=== PATIENT | male | born 1945 | race Caucasian/White ===

== ENCOUNTER 2016-07-24 16:33 | Emergency (ER) | payer OTHER ==
[~2016-07-24] VITALS: Ht 175.3 cm; Wt 59.9 kg
[~2016-07-24 16:33] MED LIST: ALBUTEROL2.5 MG/3 M INH/SOL; ANTIVERT 25MG #1 PAC PO; LIPITOR20 MG PO; LISINOPRIL-HCT1 EACH PO; MECLIZINE25 M1 PO; PREDNISONE5 M1 PO; PROAIR HFA8.5 GM INH; SINEMET 25-1001 TAB PO; SPIRIVA 18 MCG18 MCG INH; STIOLTO RESPIMA1 SPR INH; TYLENOL EXTRA500 M2 PO; WELLBUTRIN XL300 MG PO
[2016-07-24 17:08] LABS: ABSOLUTE BASOPHIL COUNT 0 /CUMM (0.0-0.2); ABSOLUTE EOSINOPHIL COUNT 0.1 /CUMM (0.0-0.7); ABSOLUTE GRANULOCYTE CT 3.5 /CUMM (1.4-6.5); ABSOLUTE LYMPH COUNT 1.9 /CUMM (1.2-3.4); BASOPHIL % 0.7 % (0.0-2.0); EOSINOPHIL % 1.2 % (0-5); GRANULOCYTE % 53.4 % (42.2-75.2); HEMATOCRIT 38.5 % (42-52); MEAN CORPUSCULAR HGB 32.3 PG (27.0-31.0); MEAN CORPUSCULAR HGB CONC 33.5 G/DL (33.0-37.0); MEAN CORPUSCULAR VOLUME 96.2 FL (80.0-94.0); MEAN PLATELET VOLUME 7.2 FL (7.4-10.4); PLATELET COUNT 177 /CUMM (130-400); RBC DISTRIBUTION WIDTH 13.6 % (11.5-14.5); WHITE BLOOD CELL COUNT 6.5 /CUMM (4.8-10.8)
--- NOTE | 2016-07-24 19:48 | ED CARDIAC/CP/PALPITATIONS ---
History of Present Illness General Chief Complaint: Chest Pain Stated Complaint: CHEST PAIN Source: patient, old records Exam Limitations: no limitations Vital Signs & Intake/Output Vital Signs & Intake/Output Vital Signs Date Time Temp Pulse Resp B/P Pulse O2 O2 Flow FiO2 Ox Delivery Rate 07/24 1943 98 07/24 1705 98.2 94 16 102/63 96 Room Air Allergies Coded Allergies: NSAIDS (Non-Steroidal Anti-Inflamma (ULCER 07/24/16) aspirin (ULCER 07/24/16) hydrocodone (NAUSEA 07/24/16) oxycodone (NAUSEA 07/24/16) Reconcile Medications Acetaminophen (Tylenol Extra Strength) 500 MG TABLET 1 TAB PO Q4H PRN PAIN ( Reported) Albuterol Sulfate (Proair Hfa) 0.09 MG/Actuation KLEBER 1 PUFF PO DAILY PRN BREATHING PROBLEMS (Reported) Albuterol Sulfate (Proventil) 2.5 MG/3 ML NEB 3 ML INH Q4P PRN SHORTNESS OF BREATH (Reported) Carbidopa/Levodopa (Carbidopa-Levodopa 25-100 Tab) 25 MG-100 MG TABLET 1 TAB PO BID PARKINSONS (Reported) Doxycycline Hyclate (Vibramycin) 100 MG CAPSULE 1 CAP PO BID bronchitis LISINOPRIL/HYDROCHLOROTHIAZIDE (Lisinopril-Hctz 20-12.5 MG Tab) 1 TAB TAB 1 TAB PO BID HEART/BP (Reported) Prednisone 5 MG TABLET 1 TAB PO PRN BREATHING (Reported) Prednisone 20 MG TABLET 1 TAB PO BID copd TIOTROPIUM BR/OLODATEROL HCL (Stiolto Respimat Inhal [place]) 1 SPR SPR 1 PUFF INH QAM RESPIRATORY (Reported) Core Measure Meds Pre-Hospital allergic to aspirin Triage Note: PT STATES HE HAD CHEST PAIN FOR ABOUT 1/2 HOUR TODAY. PT STATES HE BECAME DIZZY. NO REFERED PAIN. PT STATES HE DID FEEL SOB WHEN THE EPISODE HAPPEND. Triage Nurses Notes Reviewed? yes Onset: Just prior to arrival Duration: minute(s):, constant, continues in ED Timing: recent history Quality/Severity: moderate, stabbing Location: substernal Radiation: no radiation Activities at Onset: activity Prior Chest Pain/Card Workup: non-cardiac, echocardiography, stress test, thallium scan Modifying Factors: Improves With: coughing, exercise, movement. Nitro Today/Relief: no nitro taken today Aspirin Today: no aspirin today (allergic) Associated Symptoms: diaphoresis, dizziness, shortness of breath, weakness HPI: 2 weeks prior to admission patient complains of progressive shortness of breath especially when awakening associated with chest pain diaphoresis dizziness improved with albuterol MDI. 30 minutes Prior to admission he complained of recurrent episode of shortness of breath and chest pain improved with MDI. He denies fever chills nausea vomiting diarrhea abdominal pain headache dysuria rash bleeding. Past History Travel History Traveled to [place] past 21 day No Medical History Any Pertinent Medical History? 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 No Review of Systems Review of Systems Constitutional: Reports: no symptoms. EENTM: Reports: no symptoms. Respiratory: Reports: see HPI, cough, short of breath. Cardiovascular: Reports: see HPI, chest pain. GI: Reports: no symptoms. Genitourinary: Reports: no symptoms. Musculoskeletal: Reports: no symptoms. Skin: Reports: no symptoms. Neurological/Psychological: Reports: no symptoms. Hematologic/Endocrine: Reports: no symptoms. Immunologic/Allergic: Reports: no symptoms. All Other Systems: Reviewed and Negative Physical Exam Physical Exam General Appearance: well developed/nourished, alert, awake, anxious, mild distress, thin Head: atraumatic, normal appearance Eyes: Bilateral: normal appearance, PERRL, EOMI. Ears, Nose, Throat: normal pharynx, normal ENT inspection, hearing grossly normal Neck: normal inspection, supple, full range of motion, no midline tenderness Respiratory: chest non-tender, decreased breath sounds Cardiovascular: regular rate/rhythm, normal peripheral pulses, norml femoral pulses equa Peripheral Pulses: 4+ carotid (R), 4+ carotid (L), 2+ radial (R), 2+ radial (L) Gastrointestinal: normal bowel sounds, soft, non-tender, no organomegaly Back: normal inspection, normal range of motion, no vertebral tenderness Extremities: normal inspection, normal capillary refill, normal range of motion, no edema, no ligament instability Neurologic/Psych: no motor/sensory deficits, awake, alert, oriented x 3, normal gait, normal mood/affect, 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 Skin: intact, normal color, warm/dry Lymphatic: no anterior cervical morris Core Measures ACS in differential dx? Yes Severe Sepsis Present: No Septic Shock Present: No Progress Differential Diagnosis: AMI, CHF/pulm edema, pneumonia, pneumothorax Plan of Care: Orders Procedure Date/time Status TROPONIN LEVEL 07/24 165 Complete MAGNESIUM 07/24 165 Complete COMPREHENSIVE METABOLIC PANEL 07/24 165 Complete CHOLESTEROL 07/24 165 Complete CBC WITHOUT DIFFERENTIAL 07/24 1656 Complete EKG 07/24 1635 Active Current Medications Sig/Good Start time Last Medication Dose Stop Time Status Admin Doxycycline Hyclate 100 MG ONCE ONE 07/24 2114 AC (Vibramycin) 07/24 2115 Laboratory Tests 07/24/16 1702: Anion Gap 16, Estimated GFR 37 L, BUN/Creatinine Ratio 17.2, Glucose 75, Calcium 9.1, Magnesium 1.7, Total Bilirubin 0.3, AST 18, ALT 15 L, Alkaline Phosphatase 77, Troponin I < 0.01, Total Protein 6.3, Albumin 4.0, Globulin 2.3, Albumin/Globulin Ratio 1.7, Cholesterol 163, CBC w Diff NO MAN DIFF REQ, RBC 4.00 L, MCV 96.2 H, MCH 32.3 H, RDW 13.6, MPV 7.2 L, Gran % 53.4, Lymphocytes % 29.9, Monocytes % 14.8 H, Eosinophils % 1.2, Basophils % 0.7, Absolute Granulocytes 3.5, Absolute Lymphocytes 1.9, Absolute Monocytes 1.0 H, Absolute Eosinophils 0.1, Absolute Basophils 0, PUBS MCHC 33.5 Diagnostic Imaging: Viewed by Me: Radiology Read. Discussed w/RAD: Radiology Read. CXR Impression: no acute abnormality Initial ED EKG: normal axis, normal intervals, normal p-waves, normal QRS complex, rate (sinus tachycardia) Prior EKG: unchanged Rhythm Strip: normal sinus rhythm Departure Departure Time of Disposition: 2099 Disposition: HOME OR SELF CARE Condition: Stable Clinical Impression Primary Impression: COPD with exacerbation Secondary Impressions: Chest pain syndrome, Prerenal azotemia Referrals: FANNY DICKERSON,Koffi SOUZA MD,ADDY Jamison (PCP/Family) Additional Instructions: Use your albuterol nebulizer as needed every 4 hours Departure Forms: Customer Survey General Discharge Information Prescriptions: Current Visit Scripts Prednisone 1 TAB PO BID #10 TAB Doxycycline Hyclate (Vibramycin) 1 CAP PO BID #20 CAP Critical Care Note Critical Care Note Critical Care Time: non-applicable
[2016-07-24] MEDS ORDERED: CARBIDOPA-LEVO1 EAC7 PO (20:47)
--- NOTE | 2016-07-24 20:53 | RADIOLOGY REPORT ---
EXAMINATION: XR CHEST CLINICAL INFORMATION: 71-year-old male patient with chest pain. Known emphysema. COMPARISON: Portable chest x-ray on 08/10/2015. Previous chest x-ray done 11/04/2013. TECHNIQUE: PA and lateral views of the chest were obtained. FINDINGS: Reexamination again shows the signs of emphysema. There is hyperaeration of both lungs. The heart is small in size secondary to the hyperaeration. No pneumonia or atelectasis is seen. An anterior cervical spinal fusion is in place. IMPRESSION: No acute disease. Emphysema.
[2016-07-24] MEDS ORDERED: PREDNISONE20 M1 PO (21:01)
[2016-07-24] MEDS ORDERED: VIBRAMYCIN100 MG PO (21:03)
[2016-07-24 21:15] VITALS: BP 110/68
== END 2016-07-24 21:15 ==
LOC: ERH 16:33
PROVIDERS: Emergency Medicine
DX: R07.9 Chest pain, unspecified (principal); J44.1 Chronic obstructive pulmonary disease with (acute) exacerbation; R79.89 Other specified abnormal findings of blood chemistry; F17.210 Nicotine dependence, cigarettes, uncomplicated
CPT/HCPCS: 1263; 93005; 93010; 96374; J2930

== ENCOUNTER 2016-10-03 12:00 | Emergency (ER) | payer OTHER ==
[~2016-10-03] VITALS: Ht 175.3 cm; Wt 63.5 kg
[~2016-10-03 12:00] MED LIST changes: +CARBIDOPA-LEVO1 EAC7 PO; +PREDNISONE20 M1 PO; +VIBRAMYCIN100 MG PO
--- NOTE | 2016-10-03 12:16 | ED DYSPNEA/ASTHMA COMPLAINT ---
History of Present Illness General Chief Complaint: Dyspnea (COPD, CHF, Other) Stated Complaint: SOB Source: patient, old records Exam Limitations: no limitations Vital Signs & Intake/Output Vital Signs & Intake/Output Vital Signs Date Time Temp Pulse Resp B/P Pulse O2 O2 Flow FiO2 Ox Delivery Rate 10/03 1407 98.5 92 18 132/87 95 Room Air Room Air 10/03 1259 99 10/03 1222 96 Room Air Room Air 10/03 1211 98.6 98 22 129/88 96 Room Air Allergies Coded Allergies: NSAIDS (Non-Steroidal Anti-Inflamma (ULCER 07/24/16) aspirin (ULCER 07/24/16) hydrocodone (NAUSEA 07/24/16) oxycodone (NAUSEA 07/24/16) Reconcile Medications Acetaminophen (Tylenol Extra Strength) 500 MG TABLET 1 TAB PO Q4H PRN PAIN ( Reported) Albuterol Sulfate (Proair Hfa) 0.09 MG/Actuation KLEBER 1 PUFF PO DAILY PRN BREATHING PROBLEMS (Reported) Albuterol Sulfate (Proventil) 2.5 MG/3 ML NEB 3 ML INH Q4P PRN SHORTNESS OF BREATH (Reported) Azithromycin 250 MG TABLET 1 DP PO AD BRONCHITIS 2 the first day followed by 1 for days 2-5 Carbidopa/Levodopa (Carbidopa-Levodopa 25-100 Tab) 25 MG-100 MG TABLET 1 TAB PO BID PARKINSONS (Reported) Doxycycline Hyclate (Vibramycin) 100 MG CAPSULE 1 CAP PO BID bronchitis LISINOPRIL/HYDROCHLOROTHIAZIDE (Lisinopril-Hctz 20-12.5 MG Tab) 1 TAB TAB 1 TAB PO BID HEART/BP (Reported) Methylprednisolone. (Medrol) 4 MG TAB.DS.PK 1 DP PO AD BRONCHITIS 6 on day 1 then reduce by one tablet daily until gone Prednisone 5 MG TABLET 1 TAB PO PRN BREATHING (Reported) Prednisone 20 MG TABLET 1 TAB PO BID copd TIOTROPIUM BR/OLODATEROL HCL (Stiolto Respimat Inhal [place]) 1 SPR SPR 1 PUFF INH QAM RESPIRATORY (Reported) Triage Note: PT C/O PRODUCTIVE COUGH WITH YELLOW PHLEGM X 3 DAYS. PT STATES HE BECAME VERY SOB WHILE WALKING FROM HIS CAR TO THE ED. Triage Nurses Notes Reviewed? yes Onset: Gradual Duration: day(s): (3), constant Timing: recent history Severity: mild, moderate Activities at Onset: activity Prior Episodes/Possible Cause: occasional episodes Modifying Factors: Worsens With: movement. Associated Symptoms: cough HPI: 71-year-old male with history of chronic bronchitis emphysema hypertension who quit smoking 3 months ago presents emergency room sent in by his primary care physician for evaluation. Patient states she's had a productive cough of yellow sputum for the past 3 days. He states that his cough is normally productive of white sputum however this is no associated with intermittent shortness of breath that is worse with exertion and better at rest and resolved with using his albuterol inhaler and nebulizer. The patient denies fevers chills chest pain leg swelling nausea vomiting or diarrhea. No recent antibiotic use. No sick contacts of similar symptoms. Symptoms are worse with exertion better at rest there are no other associated symptoms. The patient is not oxygen dependent at home. No pain with inspiration no hemoptysis (CHELSEA BETANCUR) Past History Travel History Traveled to [place] past 21 day No Medical History Any Pertinent Medical History? 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 No (CHELSEA BETANCUR) Review of Systems Review of Systems Constitutional: Reports: see HPI. All Other Systems: Reviewed and Negative Comments Review of systems: See HPI, All other systems negative. Constitutional, no chills no fever, no malaise HEENT: No visual changes no sore throat no congestion, no ear pain Cardiovascular: No chest pain , no palpitation , no orthopnea no ankle swelling Skin, no jaundice no rashes, no change in skin Respiratory: dyspnea cough SPutum no hemoptysis GI: No nausea no vomiting, no diarrhea, : No dysuria No hematuria, Muscle skeletal: No joint pain, no joint swelling, no back pain, no neck pain, Neurologic: No numbness no headache Psych: No stress. Heme/endocrine: No bruising no bleeding Immunology: No lymphadenopathy (CHELSEA BETANCUR) Physical Exam Physical Exam General Appearance: well developed/nourished, alert, awake Respiratory: normal breath sounds, chest non-tender, no respiratory distress Comments: Well-developed well-nourished person in no acute distress HEENT: Normal EENT exam; PERRL, EOMI, HEAD is atraumatic. moist mucous membranes. Neck: Supple, no lymphadenopathy, normal range of motion Back: Nontender, no CVA tenderness. Full range of motion Cardiovascular: Regular rate and rhythms no murmurs rubs Respiratory: No respiratory distress. Patient speaking in full complete sentences. Breath sounds clear to auscultation bilaterally: NO W/R/R Abdomen: Soft, nontender nondistended, no appreciable organomegaly. Extremity: No edema, full range of motion of extremities, normal and equal pulses bilaterally Neuro: Alert oriented x3, motor sensory normal, There were no obvious focal neurologic abnormalities. Skin: No appreciable rash on exposed skin, skin is warm and dry. Psych: Mood and affect is normal, memory and judgment is normal. Core Measures ACS in differential dx? Yes Severe Sepsis Present: No Septic Shock Present: No (CHELSEA BETANCUR) Progress Differential Diagnosis: asthma, AMI, bronchitis, CHF, COPD, musculoskeletal pain , pericarditis, pulmonary embolism, pneumonia, pneumothorax, unstable angina Plan of Care: Orders Procedure Date/time Status BLOOD CULTURE 10/03 1225 Active TROPONIN LEVEL 10/03 1225 Complete COMPREHENSIVE METABOLIC PANEL 10/03 1225 Complete CBC WITHOUT DIFFERENTIAL 10/03 1225 Complete EKG 10/03 1202 Active Laboratory Tests 10/03/16 1310: Anion Gap 8, Estimated GFR 35 L, BUN/Creatinine Ratio 15.8, Glucose 85, Calcium 9.1, Total Bilirubin 0.5, AST 19, ALT 31, Alkaline Phosphatase 91, Troponin I < 0.01, Total Protein 6.0 L, Albumin 3.7, Globulin 2.3, Albumin/Globulin Ratio 1.6 10/03/16 1300: CBC w Diff NO MAN DIFF REQ, RBC 3.89 L, MCV 95.5 H, MCH 32.3 H, RDW 13.6, MPV 8.0, Gran % 65.5, Lymphocytes % 20.7, Monocytes % 10.8 H, Eosinophils % 2.2, Basophils % 0.8, Absolute Granulocytes 6.7 H, Absolute Lymphocytes 2.1, Absolute Monocytes 1.1 H, Absolute Eosinophils 0.2, Absolute Basophils 0.1, PUBS MCHC 33.8 Microbiology 10/03 1310 BLOOD: Blood Culture - RECD 10/03 1300 BLOOD: Blood Culture - RECD Patient speaking in full complete sentences in no respiratory distress x-ray DuoNeb prednisone 60 mg by mouth ordered 10/03/2016 1:35:03 PM repeat evaluation patient is resting comfortably. Discussed with at length all of his lab results the x-ray findings case was discussed with Dr. ODOM. Patient was ambulatory around the emergency room with a room air saturation of 94% Old records reviewed patient's creatinine is at baseline rest of labs are unremarkable. pt seen and evaluted by dr odom agrees with plan. I discussed with the patient at length all of their results. I had an extensive conversation regarding need for close follow up with their primary care physician this week as well as return precautions. I answered all of their questions, they feel comfortable with the plan and follow-up care. I discussed the medications that they will receive with the patient. I gave them signs and symptoms that could indicate an adverse reaction. I have advised them to limit their activities until they can see how they respond to the medication. (SAI KWOK,CHELSEA) Diagnostic Imaging: Viewed by Me: Radiology Read. Discussed w/RAD: Radiology Read. Radiology Impression: PATIENT: MAYRA JUAREZ PRESENT AGE: 71 PATIENT ACCOUNT NO: [id number] : 44 LOCATION: [facility] ORDERING PHYSICIAN: CHELSEA KWOK SERVICE DATE: 10/03/16 EXAM TYPE: RAD - XRY- CHEST XRAY, PA AND LATERAL EXAMINATION: XR CHEST CLINICAL INFORMATION: 71-year- old male with shortness of breath and cough. COMPARISON: July 24, 2016 TECHNIQUE: 2 views of the chest were obtained. FINDINGS: The cardiomediastinal silhouette is within normal limits. The lungs are hyperinflated and hyperlucent consistent with underlying COPD/emphysema. There is no focal consolidation, pleural effusion or pneumothorax. Lower cervical fusion hardware again noted. Partially imaged abdominal aortic stent graft present. Mild degenerative changes are seen throughout the thoracic spine. IMPRESSION: No radiographic evidence of acute pulmonary disease. Emphysema. DICTATED BY: KATERINE STROUD DO DATE/TIME DICTATED:10/03/161309 STONE HAND:CORKY DATE/TIME TRANSCRIBED:1309 CONFIDENTIAL, DO NOT COPY WITHOUT APPROPRIATE AUTHORIZATION. < Electronically signed in Other Vendor System> SIGNED BY: LIBAN STROUD DOOsiris Chand 10/03/16 1314 Initial ED EKG: normal intervals, normal p-waves, normal QRS complex, normal sinus rhythm (80), NONSPECIFIC ST SEG CHANGES Prior EKG: unchanged (07/2016) (CHELSEA BETANCUR) Departure Departure Time of Disposition: 1356 Disposition: HOME OR SELF CARE Condition: Stable Clinical Impression Primary Impression: Bronchitis Referrals: LIBBY DICKERSON,ADDY Jamison (PCP/Family) Additional Instructions: ZPAK DIRECTED, MEDROL DOSE LAKESHIA DISCUSSED. THESE WERE SENT TO YOUR PHARMACY. FOLLOW UP WITH DR MEDINA ON THURSDAY, RETURN AT ANYTIME SOONER WITH ANY CONCERNS Departure Forms: Customer Survey General Discharge Information Prescriptions: Current Visit Scripts Azithromycin 1 DP PO AD #6 TAB 2 the first day followed by 1 for days 2-5 Methylprednisolone. (Medrol) 1 DP PO AD #1 DP 6 on day 1 then reduce by one tablet daily until gone (CHELSEA BETANCUR) PA/BOARD CERTIFIED MUSIC THERAPIST Co-Sign Statement Statement: ED Attending supervision documentation- [X] I saw and evaluated the patient. I have also reviewed all the pertinent lab results and diagnostic results. I agree with the findings and the plan of care as documented in the PA's/BOARD CERTIFIED MUSIC THERAPIST's documentation. [] I have reviewed the ED Record and agree with the PA's/BOARD CERTIFIED MUSIC THERAPIST's documentation. [] Additions or exceptions (if any) to the PAs/BOARD CERTIFIED MUSIC THERAPIST's note and plan are summarized below: [] (HERLINDA ODOM DO) Critical Care Note Critical Care Note Critical Care Time: non-applicable (CHELSEA BETANCUR)
[2016-10-03 13:14] LABS: ABSOLUTE BASOPHIL COUNT 0.1 /CUMM (0.0-0.2); ABSOLUTE EOSINOPHIL COUNT 0.2 /CUMM (0.0-0.7); ABSOLUTE GRANULOCYTE CT 6.7 /CUMM (1.4-6.5); ABSOLUTE LYMPH COUNT 2.1 /CUMM (1.2-3.4); ABSOLUTE MONOCYTE COUNT 1.1 /CUMM (0.10-0.60); BASOPHIL % 0.8 % (0.0-2.0); EOSINOPHIL % 2.2 % (0-5); GRANULOCYTE % 65.5 % (42.2-75.2); HEMATOCRIT 37.1 % (42-52); MEAN CORPUSCULAR HGB 32.3 PG (27.0-31.0); MEAN CORPUSCULAR HGB CONC 33.8 G/DL (33.0-37.0); MEAN CORPUSCULAR VOLUME 95.5 FL (80.0-94.0); PLATELET COUNT 205 /CUMM (130-400); RBC DISTRIBUTION WIDTH 13.6 % (11.5-14.5); RED BLOOD CELL CT 3.89 /CUMM (4.70-6.10); WHITE BLOOD CELL COUNT 10.3 /CUMM (4.8-10.8)
--- NOTE | 2016-10-03 13:19 | RADIOLOGY REPORT ---
EXAMINATION: XR CHEST CLINICAL INFORMATION: 71-year-old male with shortness of breath and cough. COMPARISON: July 24, 2016 TECHNIQUE: 2 views of the chest were obtained. FINDINGS: The cardiomediastinal silhouette is within normal limits. The lungs are hyperinflated and hyperlucent consistent with underlying COPD/emphysema. There is no focal consolidation, pleural effusion or pneumothorax. Lower cervical fusion hardware again noted. Partially imaged abdominal aortic stent graft present. Mild degenerative changes are seen throughout the thoracic spine. IMPRESSION: No radiographic evidence of acute pulmonary disease. Emphysema.
[2016-10-03] MEDS ORDERED: MEDROL4 M2 PO (13:57)
[2016-10-03] MEDS ORDERED: AZITHROMYCIN250 M1 PO (13:57)
[2016-10-03 14:07] VITALS: BP 132/87
== END 2016-10-03 14:09 ==
LOC: ERH 12:00
PROVIDERS: Physician Assistant Medical
DX: J40 Bronchitis, not specified as acute or chronic (principal); Z87.891 Personal history of nicotine dependence
CPT/HCPCS: 1263; 87040; 93005; 93010

== ENCOUNTER 2016-11-04 11:09 | Emergency (ER) | payer OTHER ==
[~2016-11-04] VITALS: Ht 175.3 cm; Wt 65.8 kg
[~2016-11-04 11:09] MED LIST changes: +AZITHROMYCIN250 M1 PO; +MEDROL4 M2 PO
--- NOTE | 2016-11-04 11:39 | ED DYSPNEA/ASTHMA COMPLAINT ---
History of Present Illness General Chief Complaint: Dyspnea (COPD, CHF, Other) Stated Complaint: SOB Source: patient Exam Limitations: no limitations Allergies Coded Allergies: NSAIDS (Non-Steroidal Anti-Inflamma (ULCER 07/24/16) aspirin (ULCER 07/24/16) hydrocodone (NAUSEA 07/24/16) oxycodone (NAUSEA 07/24/16) Reconcile Medications Albuterol Sulfate (Proair Hfa) 90 MCG HFA.AER.AD 2 PUF INH Q4-6 PRN PRN SHORTNESS OF BREATH (Reported) Albuterol Sulfate 2.5 MG/3 ML (0.083 %) VIAL.NEB 1 Vial INH/YUDITH Q4P PRN SHORTNESS OF BREATH (Reported) Azithromycin 250 MG TABLET 1 DP PO AD bronchitis 2 the first day followed by 1 for days 2-5 Carbidopa/Levodopa (Carbidopa-Levodopa 25-100 Tab) 25 MG-100 MG TABLET 1 TAB PO BID PARKINSONS (Reported) Lisinopril/Hydrochlorothiazide (Lisinopril-Hctz 20-12.5 MG Tab) 20 MG-12.5 MG TABLET 1 TAB PO DAILY HEART (Reported) Methylprednisolone. (Medrol) 4 MG TAB.DS.PK 1 DP PO AD copd 6 on day 1 then reduce by one tablet daily until gone Triage Note: PT TRIPODING IN TRIAGE, BROUGHT BACK TO ROOM. PT STATES HAVING A HARD TIME BREATHING. PT PURSED LIP BREATHING 02 SAT 96% ON RA. PT WITH HX OF COPD AND EMPHASEMA SENT IN BY PCP FOR INCREASED SOB PT DENIES COUGH LUNGS CTA IV ESTABLISHED BLOOD DRAWN AND SENT Triage Nurses Notes Reviewed? yes HPI: This patient is a 71-year-old male with a past medical history including chronic bronchitis and emphysema who presented to the emergency department today for evaluation of shortness of breath. The patient reported that approximately one hour prior to arrival he started feeling short of breath. He reported that he called his primary care physician who told him to come to the emergency department because there is roadwork going on outside of his office and could not take the patient. The patient reported that he did use a nebulizer treatment and this morning as well as his pro-air which didn't seem to help. He denied worsening shortness of breath with deep breaths. He reported that the shortness of breath is primarily with exertion. The patient is not on oxygen at home. He denied any chest pain, palpitations, numbness or tingling in his extremities, jaw pain, arm pain, headaches, visual changes, dizziness, lightheadedness, abdominal pain, nausea, vomiting, constipation, or diarrhea. The patient reported that one day where he felt left-sided chest pain whenever he took a deep breath. He denied any similar symptoms currently. He reported that he recently had an echocardiogram done by Dr. BARNETT which he was told was normal. (MALU AVITIA PA-C) Vital Signs & Intake/Output Vital Signs & Intake/Output Vital Signs Date Time Temp Pulse Resp B/P B/P Pulse O2 O2 Flow FiO2 Mean Ox Delivery Rate 11/04 1501 97.9 88 18 136/74 94 Room Air 11/04 1306 97.1 18 18 126/69 97 Nasal 3.5L Cannula 11/04 1215 97 Nasal 4.0L Cannula 11/04 1130 96 11/04 1129 97.7 106 24 132/82 96 Room Air Past History Travel History Traveled to [place] past 21 day No Medical History Any Pertinent Medical History? 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 No (MALU AVITIA PA-C) Review of Systems Review of Systems Constitutional: Reports: no symptoms. EENTM: Reports: no symptoms. Respiratory: Reports: see HPI. Cardiovascular: Reports: no symptoms. GI: Reports: no symptoms. Genitourinary: Reports: no symptoms. Musculoskeletal: Reports: no symptoms. Skin: Reports: no symptoms. Neurological/Psychological: Reports: no symptoms. All Other Systems: Reviewed and Negative (MALU AVITIA PA-C) Physical Exam Physical Exam Respiratory: quiet respiration, NO WHEEZES, RALES, OR RHONCHI. nO ACCESSORY MUSCLE USE. nO DIMINISHED BREATH SOUNDS. Comments: Well-developed well-nourished person in no acute distress HEENT: Normal EENT exam, head normocephalic, moist mucous membranes Pupils equally round and reactive to light. Neck: Supple, no lymphadenopathy Back: Normal inspection Cardiovascular: Tachycardic with a regular rhythm and no murmurs. No carotid bruits or JVD Abdomen: Soft, nontender, and nondistended with no rebound or guarding Extremity: No edema, no calf tenderness to palpation, normal and equal pulses. Neuro: Alert oriented x3, cranial nerves II through XII grossly intact. Skin: No appreciable rash on exposed skin, skin is warm and dry. Psych: Mood and affect is normal Core Measures ACS in differential dx? Yes Severe Sepsis Present: No Septic Shock Present: No (SADI CAPPS,MALU) Progress Differential Diagnosis: asthma, AMI, bronchitis, costochondritis, CHF, COPD, musculoskeletal pain, pericarditis, pulmonary embolism, pneumonia, pneumothorax, unstable angina Diagnostic Imaging: Viewed by Me: Radiology Read, Ultrasound. Discussed w/RAD: Radiology Read, Ultrasound. Radiology Impression: PATIENT: MAYRA JUAREZ PRESENT AGE: 71 PATIENT ACCOUNT NO: [id number] : 44 LOCATION: [facility] ORDERING PHYSICIAN: MALU AVITIA PA-C SERVICE DATE: 11/04/16 EXAM TYPE: RAD - XRY-CHEST XRAY, PA AND LATERAL EXAMINATION: XR CHEST CLINICAL INFORMATION: Shortness of breath, rule out pneumonia. COMPARISON: 10/03/2016, 11/04/2013. TECHNIQUE: 2 views of the chest were obtained. FINDINGS: The cardiomediastinal silhouette appears unremarkable. Lungs are hyperexpanded and clear. No pleural effusions are seen. There is no evidence of pneumothorax or pulmonary edema. Included osseous structures appear largely unremarkable. There are postsurgical changes in the lower cervical spine. IMPRESSION: COPD changes without evidence of an acute intrathoracic process. DICTATED BY: HILLARY WOMACK MD DATE/TIME DICTATED:11/04/161232 VOCATIONAL CASE MANAGER:CORKY DATE/TIME TRANSCRIBED:1232 CONFIDENTIAL, DO NOT COPY WITHOUT APPROPRIATE AUTHORIZATION. < Electronically signed in Other Vendor System> SIGNED BY: HILLARY WOMACK MD 11/04/16 1244, PATIENT: MAYRA JUAREZ PRESENT AGE: 71 PATIENT ACCOUNT NO: [id number] : 44 LOCATION: [facility] ORDERING PHYSICIAN: MALU AVITIA PA-C SERVICE DATE: 11/04/16121 EXAM TYPE: NUC - LUNG SCAN (V/Q) EXAMINATION: PULMONARY VENTILATION PERFUSION STUDY CLINICAL INFORMATION: Tachycardia, tachypnea, shortness of breath. COMPARISON: No previous lung scan is available for comparison. Chest radiographs dated 2016, the same date as this lung scan, are available for comparison. TECHNIQUE: Serial gamma scintillation camera images were obtained over the posterior chest during the single breath, equilibrium rebreathing and washout of 22.0 mCi Xe 133 gas. The patient then received 3.9 mCi Tc-99m MAA intravenously and a 6-view perfusion study was performed. FINDINGS: Ventilation images: On the single breath and equilibrium images there is a small rounded peripherally based focus of decreased activity laterally and posteriorly in the left upper lobe. In the washout phase there is moderately severe retention diffusely, without a focal component. Perfusion images: No segmental perfusion defects are present. There is a nonsegmental perfusion defect present laterally and posteriorly in the left upper lobe that is very well matched to the ventilation abnormality at this site described above. There is otherwise homogeneous distribution of activity within both lungs with no focal anatomic appearing perfusion defects present. The contemporaneous chest radiograph shows no abnormality that corresponds well 2 the focal ventilation and perfusion abnormality described above in the left upper lobe. IMPRESSION: Very low probability of pulmonary embolism. A nonsegmental perfusion abnormalities well matched to a ventilatory abnormality posterolaterally in the left upper lobe, but this shows no corresponding abnormality on the contemporaneous chest radiograph and is of uncertain clinical significance. DICTATED BY: DOUG FROST MD DATE/TIME DICTATED:11/04/161530 VOCATIONAL CASE MANAGER:CORKY DATE/TIME TRANSCRIBED:11/04/161530 CONFIDENTIAL, DO NOT COPY WITHOUT APPROPRIATE AUTHORIZATION. <Electronically signed in Other Vendor System> SIGNED BY: DOUG FROST MD 11/04/16 8424 Initial ED EKG: normal intervals, no ST T wave changes, SINUS TACHYCARDIA, 110 BPM Comments: 11/04/2016 12:38:23 PM: Dr. Caro is currently at the patient's bedside for face to face evaluation. (SADI CAPPS,MALU) Plan of Care: Orders Procedure Date/time Status AEROSOL (GEN) 11/04 1222 Complete Add-on Test (ER Only) 11/04 1134 Active TROPONIN LEVEL 11/04 113 Complete MAGNESIUM 11/04 113 Complete D-DIMER 11/04 1131 Complete COMPREHENSIVE METABOLIC PANEL 11/04 1131 Complete CBC WITHOUT DIFFERENTIAL 11/04 113 Complete B-TYPE NATRIURETIC PEP (BNP) 11/04 113 Complete EKG 11/04 1110 Active Laboratory Tests 11/04/16 1131: Anion Gap 13, Estimated GFR 35 L, BUN/Creatinine Ratio 14.2, Glucose 72, Calcium 9.7, Magnesium 1.7, Total Bilirubin 0.6, AST 20, ALT 22, Alkaline Phosphatase 84, Troponin I < 0.01, Eet-S-Mojytlhntwk Pept 116, Total Protein 6.8 , Albumin 4.3, Globulin 2.5, Albumin/Globulin Ratio 1.7, D-Dimer 2347 H, CBC w Diff NO MAN DIFF REQ, RBC 4.15 L, MCV 96.8 H, MCH 31.8 H, RDW 13.9, MPV 7.7, Gran % 61.9, Lymphocytes % 25.7, Monocytes % 9.5 H, Eosinophils % 2.3, Basophils % 0.6, Absolute Granulocytes 5.6, Absolute Lymphocytes 2.3, Absolute Monocytes 0.9 H, Absolute Eosinophils 0.2, Absolute Basophils 0.1, PUBS MCHC 32.8 L Departure Departure Disposition: HOME OR SELF CARE Condition: Stable Clinical Impression Primary Impression: COPD (chronic obstructive pulmonary disease) Qualifiers: COPD type: unspecified COPD Qualified Code: J44.9 - Chronic obstructive pulmonary disease, unspecified Referrals: LIBBY DICKERSON,ADDY Jamison (PCP/Family) Additional Instructions: Take Medrol Dosepak as prescribed. Take antibiotic as prescribed and for the full duration. Please continue to use your nebulizer machine as previously instructed. Please continue to use your rescue inhaler as previously instructed. Be sure to call your primary care physician to schedule a follow-up appointment. Return for any worsening symptoms or concerns. Departure Forms: Customer Survey General Discharge Information Prescriptions: Current Visit Scripts Methylprednisolone. (Medrol) 1 DP PO AD #1 DP 6 on day 1 then reduce by one tablet daily until gone Azithromycin 1 DP PO AD #6 TAB 2 the first day followed by 1 for days 2-5 (SADI CAPPS,MALU) PA/LUBRICATION TECHNICIAN Co-Sign Statement Statement: ED Attending supervision documentation- [X] I saw and evaluated the patient. I have also reviewed all the pertinent lab results and diagnostic results. I agree with the findings and the plan of care as documented in the PA's/LUBRICATION TECHNICIAN's documentation. [] I have reviewed the ED Record and agree with the PA's/LUBRICATION TECHNICIAN's documentation. [] Additions or exceptions (if any) to the PAs/LUBRICATION TECHNICIAN's note and plan are summarized below: [] (LAURO DICKERSON,HERLINDA Delacruz) Critical Care Note Critical Care Note Critical Care Time: non-applicable (SADI CAPPS,MALU)
[2016-11-04 11:48] LABS: ABSOLUTE BASOPHIL COUNT 0.1 /CUMM (0.0-0.2); ABSOLUTE EOSINOPHIL COUNT 0.2 /CUMM (0.0-0.7); ABSOLUTE GRANULOCYTE CT 5.6 /CUMM (1.4-6.5); ABSOLUTE LYMPH COUNT 2.3 /CUMM (1.2-3.4); ABSOLUTE MONOCYTE COUNT 0.9 /CUMM (0.10-0.60); BASOPHIL % 0.6 % (0.0-2.0); EOSINOPHIL % 2.3 % (0-5); GRANULOCYTE % 61.9 % (42.2-75.2); HEMATOCRIT 40.2 % (42-52); MEAN CORPUSCULAR HGB 31.8 PG (27.0-31.0); MEAN CORPUSCULAR HGB CONC 32.8 G/DL (33.0-37.0); MEAN CORPUSCULAR VOLUME 96.8 FL (80.0-94.0); MEAN PLATELET VOLUME 7.7 FL (7.4-10.4); PLATELET COUNT 235 /CUMM (130-400); RBC DISTRIBUTION WIDTH 13.9 % (11.5-14.5); RED BLOOD CELL CT 4.15 /CUMM (4.70-6.10); WHITE BLOOD CELL COUNT 9.1 /CUMM (4.8-10.8)
--- NOTE | 2016-11-04 12:44 | RADIOLOGY REPORT ---
EXAMINATION: XR CHEST CLINICAL INFORMATION: Shortness of breath, rule out pneumonia. COMPARISON: 10/03/2016, 11/04/2013. TECHNIQUE: 2 views of the chest were obtained. FINDINGS: The cardiomediastinal silhouette appears unremarkable. Lungs are hyperexpanded and clear. No pleural effusions are seen. There is no evidence of pneumothorax or pulmonary edema. Included osseous structures appear largely unremarkable. There are postsurgical changes in the lower cervical spine. IMPRESSION: COPD changes without evidence of an acute intrathoracic process.
[2016-11-04 15:01] VITALS: BP 136/74
--- NOTE | 2016-11-04 15:42 | NUCLEAR MEDICINE REPORT ---
EXAMINATION: PULMONARY VENTILATION PERFUSION STUDY CLINICAL INFORMATION: Tachycardia, tachypnea, shortness of breath. COMPARISON: No previous lung scan is available for comparison. Chest radiographs dated 11/04/2016, the same date as this lung scan, are available for comparison. TECHNIQUE: Serial gamma scintillation camera images were obtained over the posterior chest during the single breath, equilibrium rebreathing and washout of 22.0 mCi Xe 133 gas. The patient then received 3.9 mCi Tc-99m MAA intravenously and a 6-view perfusion study was performed. FINDINGS: Ventilation images: On the single breath and equilibrium images there is a small rounded peripherally based focus of decreased activity laterally and posteriorly in the left upper lobe. In the washout phase there is moderately severe retention diffusely, without a focal component. Perfusion images: No segmental perfusion defects are present. There is a nonsegmental perfusion defect present laterally and posteriorly in the left upper lobe that is very well matched to the ventilation abnormality at this site described above. There is otherwise homogeneous distribution of activity within both lungs with no focal anatomic appearing perfusion defects present. The contemporaneous chest radiograph shows no abnormality that corresponds well 2 the focal ventilation and perfusion abnormality described above in the left upper lobe. IMPRESSION: Very low probability of pulmonary embolism. A nonsegmental perfusion abnormalities well matched to a ventilatory abnormality posterolaterally in the left upper lobe, but this shows no corresponding abnormality on the contemporaneous chest radiograph and is of uncertain clinical significance.
[2016-11-04] MEDS ORDERED: MEDROL4 M2 PO (15:53)
[2016-11-04] MEDS ORDERED: AZITHROMYCIN250 M1 PO (15:53)
== END 2016-11-04 16:04 ==
LOC: ERH 11:09 → ENRESERV 14:02 → CANBEDREQ 14:02 → CANRESERV 14:02 → ERH 16:04
PROVIDERS: Physician Assistant
DX: J44.9 Chronic obstructive pulmonary disease, unspecified (principal); Z87.891 Personal history of nicotine dependence; I10 Essential (primary) hypertension
CPT/HCPCS: 1263; 78582; 93005; 93010; 96374; A9540; A9558; J2930

== ENCOUNTER 2016-12-15 11:12 | Emergency (ER) | payer OTHER ==
[~2016-12-15] VITALS: Ht 175.3 cm; Wt 67.1 kg
[2016-12-15 11:46] LABS: ABSOLUTE BASOPHIL COUNT 0 /CUMM (0.0-0.2); ABSOLUTE EOSINOPHIL COUNT 0.2 /CUMM (0.0-0.7); ABSOLUTE GRANULOCYTE CT 4.9 /CUMM (1.4-6.5); ABSOLUTE MONOCYTE COUNT 0.6 /CUMM (0.10-0.60); BASOPHIL % 0.5 % (0.0-2.0); GRANULOCYTE % 63.8 % (42.2-75.2); HEMATOCRIT 38.1 % (42-52); MEAN CORPUSCULAR HGB 31.6 PG (27.0-31.0); MEAN CORPUSCULAR HGB CONC 33.3 G/DL (33.0-37.0); MEAN PLATELET VOLUME 7.6 FL (7.4-10.4); PLATELET COUNT 206 /CUMM (130-400); RBC DISTRIBUTION WIDTH 13.4 % (11.5-14.5); RED BLOOD CELL CT 4.01 /CUMM (4.70-6.10); WHITE BLOOD CELL COUNT 7.7 /CUMM (4.8-10.8)
--- NOTE | 2016-12-15 12:37 | ED DYSPNEA/ASTHMA COMPLAINT ---
History of Present Illness General Chief Complaint: Dyspnea (COPD, CHF, Other) Stated Complaint: SOB Source: patient Exam Limitations: no limitations Vital Signs & Intake/Output Vital Signs & Intake/Output Vital Signs Date Time Temp Pulse Resp B/P B/P Pulse O2 O2 Flow FiO2 Mean Ox Delivery Rate 12/15 1432 97.6 70 21 125/72 98 Room Air 12/15 1317 98 Nasal 1.0L Cannula 12/15 1300 98 Nasal 1.0L Cannula 12/15 1222 97 Nasal 1.0L Cannula 12/15 1120 97.8 78 24 121/75 96 Room Air Room Air Allergies Coded Allergies: NSAIDS (Non-Steroidal Anti-Inflamma (ULCER 07/24/16) aspirin (ULCER 07/24/16) hydrocodone (NAUSEA 07/24/16) oxycodone (NAUSEA 07/24/16) Reconcile Medications Albuterol Sulfate (Proair Hfa) 90 MCG HFA.AER.AD 2 PUF INH Q4-6 PRN PRN SHORTNESS OF BREATH (Reported) Albuterol Sulfate 2.5 MG/3 ML (0.083 %) VIAL.NEB 1 Vial INH/YUDITH Q4P PRN SHORTNESS OF BREATH (Reported) Albuterol Sulfate (Proair Hfa) 90 MCG HFA.AER.AD 2 PUF INH Q4-6 PRN PRN copd Carbidopa/Levodopa (Carbidopa-Levodopa 25-100 Tab) 25 MG-100 MG TABLET 1 TAB PO BID PARKINSONS (Reported) Lisinopril/Hydrochlorothiazide (Lisinopril-Hctz 20-12.5 MG Tab) 20 MG-12.5 MG TABLET 1 TAB PO DAILY HEART (Reported) Prednisone 50 MG TABLET 1 TAB PO DAILY COPD Triage Note: PT WITH INCREASED SOB SATS 96% ON RA. PT TAKEN TO [facility] EKG COMPLETED AND SHOWN TO DR. RESTREPO BY [facility]. PT STATES HE HAS EMPHASEMA AND INCREASED SOB WITH AMBULATION. Triage Nurses Notes Reviewed? yes HPI: 71 yo M PMH HTN, HLD, COPD, parkinsons presenting with shortness of breath. Acute on chronic shortness of breath starting today while walking up several flights of stairs to get into apartment, associated wheezing and cough. Patient endorses similar SOB intermittently for the last 6-8 months attributed to COPD, using albuterol inhaler today with some relief, most recent steroids 1 months ago, no daily maintenance inhalers, no prior ICU admissions or intubations. ROS (+) for intermittent right upper chest pains for the last several months, sharp quality, lasting seconds at a time, ?exertional, non-pleuritic, non today, recent negative nuclear stress test. Past History Travel History Traveled to [place] past 21 day No Medical History Any Pertinent Medical History? 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 Yes Review of Systems Review of Systems Constitutional: Reports: weakness. EENTM: Reports: no symptoms. Respiratory: Reports: cough, short of breath, wheezing. Cardiovascular: Reports: chest pain. Denies: orthopena, peripheral edema. GI: Reports: no symptoms. Genitourinary: Reports: no symptoms. Musculoskeletal: Reports: no symptoms. Skin: Reports: no symptoms. Neurological/Psychological: Reports: no symptoms. Hematologic/Endocrine: Reports: no symptoms. Immunologic/Allergic: Reports: no symptoms. All Other Systems: Reviewed and Negative Physical Exam Physical Exam General Appearance: well developed/nourished, no apparent distress Neck: normal inspection, full range of motion Respiratory: quiet respiration, decreased breath sounds Cardiovascular: regular rate/rhythm, normal peripheral pulses Gastrointestinal: normal bowel sounds, soft, non-tender Neurologic/Psych: no motor/sensory deficits Comments: Pulmonary: Normal WOB, Diffusely decreased breath sounds with mild expiratory wheezes Extremities: No TTP or edema of bilateral LE Core Measures ACS in differential dx? Yes Severe Sepsis Present: No Septic Shock Present: No Progress Differential Diagnosis: asthma, bronchitis, CHF, COPD, pulmonary embolism, pneumonia, pneumothorax Plan of Care: Orders Procedure Date/time Status TROPONIN LEVEL 12/15 1500 Active TROPONIN LEVEL 12/15 1124 Complete COMPREHENSIVE METABOLIC PANEL 12/15 1124 Complete CBC WITHOUT DIFFERENTIAL 12/15 1124 Complete EKG 12/15 1114 Active Laboratory Tests 12/15/16 1128: Anion Gap 12, Estimated GFR 40 L, BUN/Creatinine Ratio 11.8, Glucose 78, Calcium 9.3, Total Bilirubin 0.5, AST 24, ALT 32, Alkaline Phosphatase 78, Troponin I < 0.01, Total Protein 6.4, Albumin 4.1, Globulin 2.3, Albumin/ Globulin Ratio 1.8, CBC w Diff NO MAN DIFF REQ, RBC 4.01 L, MCV 95.0 H, MCH 31.6 H, RDW 13.4, MPV 7.6, Gran % 63.8, Lymphocytes % 26.1, Monocytes % 7.6, Eosinophils % 2.0, Basophils % 0.5, Absolute Granulocytes 4.9, Absolute Lymphocytes 2.0, Absolute Monocytes 0.6, Absolute Eosinophils 0.2, Absolute Basophils 0, PUBS MCHC 33.3 Physician MDM: 71 yo M PMH COPD presenting with acute on chronic SOB, chest pain. VSS, saturating well on RA, remainder of exam as above. DDx: URI, Bronchitis, PNA, COPD exacerbation, CHF, COPD. EKG sinus rhythm, nonischemic. Troponin negative. CMP with elevated creatinine at 1.7 around baseline, potassium minimally elevated at 5.2, no ECG changes. CXR without focal consolidation or airspace disease. Given duonebs x 3 and prednisone with improvement in pulmonary exam and subjective respiratory status per patient. On reexamination patient resting comfortably, shortness of breath greatly improved. Patient requesting discharge prior to remainder of cardiac evaluation with repeat troponin, aware of the risks of discharge prior to repeat troponin, capable of making medical decisions, discharged AMA. Given prednisone and albuterol for COPD exacerbation, encouraged to return to the emergency department for any worsening symptoms. Case discussed with patient's PMD Dr. Maxwell, will see patient for close follow-up this week. (JADYN DICKERSON,WAYNE) Initial ED EKG: normal sinus rhythm Departure Departure Disposition: LEFT AGAINST MEDICAL ADVICE Condition: Stable Clinical Impression Primary Impression: COPD exacerbation Referrals: LBIBY DICKERSON,ADDY Jamison (PCP/Family) Additional Instructions: Use albuterol inhaler every 3-4 hours. Use prednisone for the next 4 days. Follow up with Dr. Maxwell in the next 2-3 days for further evaluation. Return to the ED for any new, worsening, or concerning symptoms. Departure Forms: Customer Survey General Discharge Information Prescriptions: Current Visit Scripts Prednisone 1 TAB PO DAILY #5 TAB Albuterol Sulfate (Proair Hfa) 2 PUF INH Q4-6 PRN PRN copd #1 INHAL Critical Care Note Critical Care Note Critical Care Time: non-applicable
--- NOTE | 2016-12-15 13:25 | RADIOLOGY REPORT ---
EXAMINATION: XR CHEST CLINICAL INFORMATION: Cough. Shortness of breath. COMPARISON: November 04, 2016 and studies going back to September 07, 2011. TECHNIQUE: 2 views of the chest were obtained. FINDINGS: No significant abnormality is noted involving the heart, lungs, mediastinum, bony thorax or soft tissues. Hyperinflation is present. IMPRESSION: No acute disease. COPD.
[2016-12-15 14:32] VITALS: BP 125/72
[2016-12-15] MEDS ORDERED: PROAIR HFA8.5 GM INH (15:18)
[2016-12-15] MEDS ORDERED: PREDNISONE50 M1 PO (15:18)
== END 2016-12-15 15:31 | disposition left against medical advice (07) ==
LOC: ERH 11:12
PROVIDERS: Emergency Medicine
DX: J44.1 Chronic obstructive pulmonary disease with (acute) exacerbation (principal); Z87.891 Personal history of nicotine dependence; I10 Essential (primary) hypertension; G20 Parkinson's disease
CPT/HCPCS: 1263; 93005; 93010

== ENCOUNTER 2017-01-21 13:12 | Emergency (ER) | payer OTHER ==
[~2017-01-21] VITALS: Ht 175.3 cm; Wt 68.0 kg
[~2017-01-21 13:12] MED LIST changes: +PREDNISONE50 M1 PO
[2017-01-21 13:21] VITALS: BP 145/84
--- NOTE | 2017-01-21 14:30 | ED THROAT/DENTAL COMPLAINT ---
History of Present Illness General Chief Complaint: General Adult Stated Complaint: PER PT "I HAVE SOMETHING STUCK IN MY THROAT" Source: patient Exam Limitations: no limitations Vital Signs & Intake/Output Vital Signs & Intake/Output Vital Signs Date Time Temp Pulse Resp B/P B/P Pulse O2 O2 Flow FiO2 Mean Ox Delivery Rate 01/21 1321 98.2 109 18 145/84 95 Room Air Allergies Coded Allergies: NSAIDS (Non-Steroidal Anti-Inflamma (ULCER 07/24/16) aspirin (ULCER 07/24/16) hydrocodone (NAUSEA 07/24/16) oxycodone (NAUSEA 07/24/16) Reconcile Medications Albuterol Sulfate 2.5 MG/3 ML (0.083 %) VIAL.NEB 1 Vial INH/YUDITH Q4P PRN SHORTNESS OF BREATH (Reported) Albuterol Sulfate (Proair Hfa) 90 MCG HFA.AER.AD 2 PUF INH Q4-6 PRN PRN copd Carbidopa/Levodopa (Carbidopa-Levodopa 25-100 Tab) 25 MG-100 MG TABLET 1 TAB PO BID PARKINSONS (Reported) Fluticasone/Vilanterol (Breo Ellipta 100-25 Mcg INH) 100 MCG-25 MCG/DOSE BLST.W.DEV 1 PUFF PO DAILY BREATHING PROBLEMS (Reported) Ipratropium/Albuterol Sulfate (Iprat-Albut 0.5-3(2.5) MG/3 Ml) 0.5 MG-3 MG (2.5 MG BASE)/3 ML AMPUL.NEB 1 INH INH BREATHING PROBLEMS (Reported) Lisinopril/Hydrochlorothiazide (Lisinopril-Hctz 20-12.5 MG Tab) 20 MG-12.5 MG TABLET 1 TAB PO DAILY HEART (Reported) Prednisone 5 MG TABLET 1 TAB PO DAILY BREATHING PROBLEMS (Reported) Triage Note: 71 YO MALE C/O ?SOMETHING STUCK IN THRAOT. UNSURE IF ITS FOOD. STATES "I THINK I COUGHED UP A PIECE OF MY WINDPIPE LAST NIGTH" DENEIS SOB, REG RESP RATE NOTED Triage Nurses Notes Reviewed? yes Onset: Abrupt Duration: gone now, intermittent Timing: recent history Severity: moderate Severity Numbers: 5 HPI: Patient is a 71-year-old male with past medical history of COPD who presents emergency room with a 3 month history of intermittent DYSPHAGIA and which he states that he has been complaining of gradually worsening increased frequency of episodes of food getting stuck in his throat. Last episode was last night where he forcibly coughs and is finally relieved of his symptoms after 10 minutes to 45 minutes in general. Patient has not followed up with a medical provider for symptoms. Patient however was able to tolerate eating a donut and clear liquids today. Patient denies any fever chills abdominal pain. Last bowel movement was with the last 24 hours. Denies any pain or reflux or burning sensation in his throat chest or abdomen. Denies any unintentional weight loss or night sweats (CHELSEA VUONG) Past History Travel History Traveled to [place] past 21 day No Medical History Any Pertinent Medical History? 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 No (CHELSEA VUONG) Review of Systems Review of Systems Constitutional: Reports: no symptoms. EENTM: Reports: no symptoms. Respiratory: Reports: no symptoms. Cardiovascular: Reports: no symptoms. GI: Reports: see HPI. Genitourinary: Reports: no symptoms. Musculoskeletal: Reports: no symptoms. Skin: Reports: no symptoms. Neurological/Psychological: Reports: no symptoms. Hematologic/Endocrine: Reports: no symptoms. Immunologic/Allergic: Reports: no symptoms. All Other Systems: Reviewed and Negative (CHELSEA VUONG) Physical Exam Physical Exam General Appearance: no apparent distress, alert, comfortable Mouth/Throat: normal mouth inspection, pharynx normal Comments: Well-developed well-nourished person in no acute distress HEENT: Normal EENT exam, extraocular motion intact, no nystagmus. Pupils equally round and reactive to light and accommodation. Nose is atraumatic. External auditory canal and Tympanic membranes clear. Pharynx normal. No swelling or edema. Neck: Supple, no lymphadenopathy, normal range of motion without pain or tenderness Back: Nontender, no CVA tenderness. Cardiovascular: Regular rate and rhythms no murmurs rubs or gallops, normal JVP Respiratory: Chest nontender. No respiratory distress.breath sounds clear to auscultation bilaterally Abdomen: Soft, nontender nondistended, no appreciable organomegaly. Normal bowel sounds. No ascites Extremity: No edema, no calf tenderness to palpation, normal and equal pulses. Neuro: Alert oriented x3, motor sensory normal, Skin: No appreciable rash on exposed skin, skin is warm and dry. Psych: Mood and affect is normal, memory and judgment is normal. Core Measures ACS in differential dx? No Severe Sepsis Present: No Septic Shock Present: No (CHELSEA VUONG) Progress Differential Diagnosis: aspirated tooth, carious tooth, epiglottitis, Ludwigs angina, meningitis, odontogenic abscess, gemma-tonsillar abscess, pharyngeal for. body, stomatitis/gingivitis, strep pharyngitis, tooth fracture, ESOPHAGAEL STRICTURE DYSHAGIA CANCER, ESOPHAGAEL IMPACTION Plan of Care: Patient is a examination was in no apparent distress. Patient has unremarkable physical exam findings. Patient was able to tolerate by mouth water in the emergency room with no complications. Patient was strongly advised to follow-up with sap security consultant for endoscopy and possible barium swallow testing and further evaluation. Patient also strongly advised to avoid solid food and begin a clear liquid soft diet. Upon discharge patient looks well no apparent distress and will comply discharge instructions and had no questions. (CHELSEA VUONG) Departure Departure Disposition: HOME OR SELF CARE Condition: Stable Clinical Impression Primary Impression: Dysphagia Referrals: JORDAN DICKERSON,YESENIA SOUZA MD,ADDY Jamison (PCP/Family) Additional Instructions: As discussed continue home medications as directed. Today please follow up and establish a sap security consultant DR. ORTEGA for further evaluation treatment. Begin eating a soft diet and plenty of liquids for hydration and nutritional supplementation. If symptoms worsen return to emergency room Departure Forms: Customer Survey General Discharge Information (CHELSEA VUONG) PA/SHOP CLERK Co-Sign Statement Statement: ED Attending supervision documentation- x I saw and evaluated the patient. I have also reviewed all the pertinent lab results and diagnostic results. I agree with the findings and the plan of care as documented in the PA's/SHOP CLERK's documentation. [] I have reviewed the ED Record and agree with the PA's/SHOP CLERK's documentation. [] Additions or exceptions (if any) to the PAs/SHOP CLERK's note and plan are summarized below: [] (SREE DICKERSON,ARMANDO)
[2017-01-21] MEDS ORDERED: PREDNISONE5 M1 PO (14:31)
[2017-01-21] MEDS ORDERED: IPRAT-ALBUT 0.5-3 ML INH (14:32)
[2017-01-21] MEDS ORDERED: BREO ELLIPTA 11 EACH PO (14:32)
== END 2017-01-21 15:20 ==
LOC: ERH 13:12
DX: R13.10 Dysphagia, unspecified (principal)

== ENCOUNTER 2017-08-21 11:11 | Inpatient (IN) | payer OTHER ==
[~2017-08-21] VITALS: Ht 175.3 cm; Wt 63.5 kg
[~2017-08-21 11:11] MED LIST changes: +BREO ELLIPTA 11 EACH PO; +CLOTRIMAZOLE-BE15 GM TOP; +IPRAT-ALBUT 0.5-3 ML INH; +MAGNESIUM400 M1 PO; +PANTOPRAZOLE SO40 M1 PO
--- NOTE | 2017-08-21 11:36 | ED DYSPNEA/ASTHMA COMPLAINT ---
See Addendum History of Present Illness General Chief Complaint: Dyspnea (COPD, CHF, Other) Stated Complaint: SOB COUGH FEVER 02 SAT 94 ON 2L O2 Source: patient Exam Limitations: no limitations Vital Signs & Intake/Output Vital Signs & Intake/Output Vital Signs Date Time Temp Pulse Resp B/P B/P Pulse O2 O2 Flow FiO2 Mean Ox Delivery Rate 08/21 1337 101.8 120 18 111/57 96 Nasal 3.0L Cannula 08/21 1335 101.8 08/21 1239 100.4 08/21 1228 96 Nasal 4.0L Cannula 08/21 1143 94 Nasal 2.0L Cannula 08/21 1115 100.4 137 30 137/90 94 Room Air Allergies Coded Allergies: NSAIDS (Non-Steroidal Anti-Inflamma (ULCER 07/24/16) aspirin (ULCER 07/24/16) hydrocodone (NAUSEA 07/24/16) oxycodone (NAUSEA 07/24/16) Reconcile Medications Albuterol Sulfate (Proair Hfa) 90 MCG HFA.AER.AD 2 PUF INH Q4-6 PRN PRN copd Carbidopa/Levodopa (Carbidopa-Levodopa 25-100 Tab) 25 MG-100 MG TABLET 1 TAB PO BID PARKINSONS (Reported) Clotrimazole/Betamethasone Dip (Clotrimazole-Betamethasone Crm) 1 %-0.05 % CREAM..G. 1 CHALO TOP AD PRN SKIN (Reported) apply to affected area(s) Fluticasone/Vilanterol (Breo Ellipta 100-25 Mcg INH) 100 MCG-25 MCG/DOSE BLST.W.DEV 1 PUFF PO DAILY BREATHING PROBLEMS (Reported) Ipratropium/Albuterol Sulfate (Iprat-Albut 0.5-3(2.5) MG/3 Ml) 0.5 MG-3 MG (2.5 MG BASE)/3 ML AMPUL.NEB 1 INH INH TID RESP (Reported) Lisinopril/Hydrochlorothiazide (Lisinopril-Hctz 20-12.5 MG Tab) 20 MG-12.5 MG TABLET 1 TAB PO BID HTN (Reported) Magnesium Oxide (Magnesium) 400 MG CAPSULE 1 TAB PO BID Supplements Pantoprazole Sodium 40 MG TABLET.DR 1 TAB PO DAILY ACID REFLUX (Reported) Prednisone 5 MG TABLET 1 TAB PO DAILY BREATHING PROBLEMS (Reported) Triage Note: C/O SOB, COUGH X WEEKS, CHEST PAIN WITH COUGH, O2 DEPENDENT. STATES HE IS BRINGIN UP " WHITE PHLEGM" AND HAS BODY ACHES. Triage Nurses Notes Reviewed? yes Onset: Gradual Duration: getting worse Timing: recent history Severity: severe HPI: Patient is a 72-year-old male with a past medical history of hypertension COPD currently on 2 L of home O2 a known stable abdominal aortic aneurysm, Parkinson' s and panic attack who is a former smoker who was recently admitted and discharged from [facility] on 06/23/2017 for concerns a COPD exacerbation and syncopal episode. Patient states for the past 3 weeks he has had worsening white productive cough shortness of breath dyspnea on exertion generalized weakness and fatigue and dizziness and pleuritic chest pain only upon coughing. Denies any fever chills arm pain jaw pain nausea vomiting leg swelling hemoptysis sore throat ear pain Patient has tried multiple doses of nebulizers at home and currently is on maintenance of steroids No syncopal episode has recurred (Jorgito Fowler) Past History Travel History Traveled to [place] past 21 day No Medical History Any Pertinent Medical History? 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 No (Jorgito Fowler) Review of Systems Review of Systems Constitutional: Reports: see HPI. EENTM: Reports: no symptoms. Respiratory: Reports: see HPI, cough, short of breath. Cardiovascular: Reports: see HPI. GI: Reports: no symptoms. Genitourinary: Reports: no symptoms. Musculoskeletal: Reports: no symptoms. Skin: Reports: no symptoms. Neurological/Psychological: Reports: no symptoms. Hematologic/Endocrine: Reports: no symptoms. Immunologic/Allergic: Reports: no symptoms. All Other Systems: Reviewed and Negative (Jorgito Fowler) Physical Exam Physical Exam General Appearance: no apparent distress, comfortable, thin Head: atraumatic Eyes: Bilateral: normal appearance, PERRL. Ears, Nose, Throat: normal pharynx, normal ENT inspection, hearing grossly normal Neck: normal inspection Respiratory: no respiratory distress, quiet respiration, decreased breath sounds Cardiovascular: tachycardia Gastrointestinal: normal bowel sounds, soft, non-tender Extremities: normal inspection, no edema Neurologic/Psych: no motor/sensory deficits, awake Skin: intact, normal color Core Measures ACS in differential dx? Yes CVA/TIA Diagnosis No Sepsis Present: Yes Sepsis Focused Exam Completed? Yes (Jorgito Fowler) Progress Differential Diagnosis: asthma, AMI, bronchitis, costochondritis, CHF, COPD, musculoskeletal pain, pericarditis, pulmonary embolism, pneumonia, pneumothorax, unstable angina Plan of Care: Orders Procedure Date/time Status Heart Healthy Diet 08/21 D Active Admit to inpatient 08/21 1429 Active Vital Signs 08/21 1429 Active Code Status 08/21 1429 Active Patient Data 08/21 1416 Active LOWER RESPIRATORY CULTURE 08/21 1207 Active BLOOD CULTURE 08/21 1206 Active Add-on Test (ER Only) 08/21 1205 Active Telemetry/Short Order Cook 08/21 1205 Active VIRAL CULTURE 08/21 1203 Active LACTIC ACID 08/21 1159 Complete D-DIMER 08/21 1159 Complete B-TYPE NATRIURETIC PEP (BNP) 08/21 1159 Complete TROPONIN LEVEL 08/21 1118 Complete COMPREHENSIVE METABOLIC PANEL 08/21 1118 Complete CBC WITHOUT DIFFERENTIAL 08/21 1118 Complete RAPID VIRAL INFLUENZA A 08/21 1113 Complete EKG 08/21 1112 Active Current Medications Sig/Good Start time Last Medication Dose Stop Time Status Admin Sodium Chloride 1,000 ML BOLUS ONE 08/21 1400 AC (Normal Saline 0.9%) 08/21 1459 Sodium Chloride 1,000 ML BOLUS ONE 08/21 1345 AC (Normal Saline 0.9%) 08/21 1444 Laboratory Tests 08/21/17 1203: Virus Culture Pending 08/21/17 1159: Anion Gap 13, Estimated GFR 31 L, BUN/Creatinine Ratio 17.6, Glucose 101 H, Lactic Acid 1.6, Calcium 9.4, Total Bilirubin 0.5, AST 31, ALT 19 L, Alkaline Phosphatase 74, Troponin I 0.03, Sed-X-Esqpznfjbwe Pept 996 H, Total Protein 6.5, Albumin 4.1, Globulin 2.4, Albumin/Globulin Ratio 1.7, D-Dimer High Sensitivty 2160 H, CBC w Diff MAN DIFF ORDERED, RBC 4.05 L, MCV 95.6 H, MCH 31.5 H, MCHC 33.0, RDW 14.8 H, MPV 7.6, Gran % 85.4 H, Lymphocytes % 4.0 L, Monocytes % 10.6 H, Eosinophils % 0, Basophils % 0, Absolute Granulocytes 7.9 H, Absolute Lymphocytes 0.4 L, Absolute Monocytes 1.0 H, Absolute Eosinophils 0, Absolute Basophils 0, Normocytic RBCs VERIFIED, Normochromic RBCs VERIFIED Microbiology 08/21 1335 BLOOD: Blood Culture - RECD 08/21 1325 BLOOD: Blood Culture - RECD 08/21 1207 LOWER RESP: Respiratory Culture - ORD 08/21 120 LOWER RESP: Gram Stain - ORD 08/21 1203 NASOPHARYN: Influenza Virus A & B Rapid Smear - COMP INFLUENZA TYPE B On initial examination patient has no respiratory distress however is requiring more than baseline O2 dependency patient has profound weakness and was brought in by ambulance Patient has concerns of influenza and possible pneumonia infiltrate and COPD exacerbation Patient will warrant a short-term stay in the hospital for concerns of comorbidities and clinical condition Upon admission there is no concerns of septic shock, there is consideration of sepsis due TO UPPER RESPIRATORY INFECTION Pulmonary embolism on admission cannot officially be ruled out due to patient's chronic renal failure and unable to perform CTA Fever still is unresolved patient cannot be administered NSAIDs IV fluids will continue to be provided Diagnostic Imaging: Viewed by Me: Radiology Read. Radiology Impression: SEE COMMENTS Initial ED EKG: SINUS TACHYCARDIA 118 BPM Prior EKG: unchanged Comments: PATIENT: MAYRA JUAREZ PRESENT AGE: 72 PATIENT ACCOUNT NO: [id number] : 44 LOCATION: [facility] ORDERING PHYSICIAN: Jorgito KWOK SERVICE DATE: 08/21/17 EXAM TYPE: RAD - XRY-CHEST XRAY, TWO VIEWS EXAMINATION: XR CHEST CLINICAL INFORMATION: Shortness of breath and cough COMPARISON: Multiple chest x-rays most recent prior dated 08/18/2017 TECHNIQUE: 2 views of the chest were obtained. FINDINGS: Stable cardiomediastinal silhouette. Hyperinflated lungs noted again. Minor blunting costophrenic sulci similar to the prior examination. Subtle interval prominence in the hazy streaky opacity left lower lung suspicious for atelectasis or minor evolving infiltrate. Postoperative changes lower cervical spine. Partial visualization of the aortic stent graft. IMPRESSION: Hazy streaky opacity left lower lung may represent evolving infiltrate or atelectasis. DICTATED BY: Nahid Lopez MD DATE/TIME DICTATED:08/21/171314 SENIOR GL ACCOUNTANT:CORKY (Jorgito Fowler) ED Sepsis Exam Date of Focused Sepsis Exam: 08/21/17 Time of Focused Sepsis Exam: 1200 Sepsis Cardiac Exam: Tachycardia Sepsis Resp Exam: DECREASED SOUNDS Sepsis Cap Refill Exam: <2 Sec Sepsis Peripheral Pulse Exam: Normal Sepsis Peripheral Pulse Location: Radial Sepsis Skin Color Exam: Normal for Ethnicity Skin Temp/Moisture Exam: Warm/Dry (Jorgito Fowler) Departure Departure Disposition: STILL A PATIENT Condition: Stable Clinical Impression Primary Impression: Sepsis Secondary Impressions: COPD with exacerbation, Fever, Influenza, Pneumonia Referrals: Remigio Webber MD (PCP/Family) Departure Forms: Customer Survey General Discharge Information Admission Note Spoke With: Twan Bingham MD Documentation of Exam: Documentation of any treatments & extenuating circumstances including Concerns Regarding Discharge (functional status, medication knowledge or non-compliance, living conditions, etc.) that warrant an admission rather than observation: [ Patient requires IV antibiotics pulmonary consultation IV steroids repeat nebulizer treatments Tamiflu antitussives IV fluids and antipyretics VQ scan to evaluate PE and possible short-term rehabilitation outpatient therapy would be medically harmful due to patient's comorbidities clinical presentation and diagnosis and profound weakness and unresolved fever] (Jorgito Fowler) Admission Note Documentation of Exam: Documentation of any treatments & extenuating circumstances including Concerns Regarding Discharge (functional status, medication knowledge or non-compliance, living conditions, etc.) that warrant an admission rather than observation: PA/CHANCERY CLERK Co-Sign Statement Statement: ED Attending supervision documentation- [X] I saw and evaluated the patient. I have also reviewed all the pertinent lab results and diagnostic results. I agree with the findings and the plan of care as documented in the PA's/CHANCERY CLERK's documentation. [] I have reviewed the ED Record and agree with the PA's/CHANCERY CLERK's documentation. [] Additions or exceptions (if any) to the PAs/CHANCERY CLERK's note and plan are summarized below: [] (Dionisio BUTT,Yahir Aaron) Critical Care Note Critical Care Note Critical Care Time: 30-74 min (Margarito KWOK,Jorgito)
[2017-08-21 12:05] LABS: ABSOLUTE BASOPHIL COUNT 0 /CUMM (0.0-0.2); ABSOLUTE EOSINOPHIL COUNT 0 /CUMM (0.0-0.7); ABSOLUTE GRANULOCYTE CT 7.9 /CUMM (1.4-6.5); ABSOLUTE LYMPH COUNT 0.4 /CUMM (1.2-3.4); BASOPHIL % 0 % (0.0-2.0); EOSINOPHIL % 0 % (0-5); GRANULOCYTE % 85.4 % (42.2-75.2); HEMATOCRIT 38.7 % (42-52); MEAN CORPUSCULAR HGB 31.5 PG (27.0-31.0); MEAN CORPUSCULAR VOLUME 95.6 FL (80.0-94.0); MEAN PLATELET VOLUME 7.6 FL (7.4-10.4); PLATELET COUNT 207 /CUMM (130-400); RBC DISTRIBUTION WIDTH 14.8 % (11.5-14.5); RED BLOOD CELL CT 4.05 /CUMM (4.70-6.10); WHITE BLOOD CELL COUNT 9.3 /CUMM (4.8-10.8)
--- NOTE | 2017-08-21 13:19 | RADIOLOGY REPORT ---
EXAMINATION: XR CHEST CLINICAL INFORMATION: Shortness of breath and cough COMPARISON: Multiple chest x-rays most recent prior dated 08/18/2017 TECHNIQUE: 2 views of the chest were obtained. FINDINGS: Stable cardiomediastinal silhouette. Hyperinflated lungs noted again. Minor blunting costophrenic sulci similar to the prior examination. Subtle interval prominence in the hazy streaky opacity left lower lung suspicious for atelectasis or minor evolving infiltrate. Postoperative changes lower cervical spine. Partial visualization of the aortic stent graft. IMPRESSION: Hazy streaky opacity left lower lung may represent evolving infiltrate or atelectasis.
--- NOTE | 2017-08-21 14:44 | History & Physical ---
Lincoln DICKERSON,Rukhsana 08/21/17 1442: General Information and HPI MD Statement: I have seen and personally examined MAYRA JUAREZ and documented this H&P. The patient is a 72 year old M who presented with a patient stated chief complaint of [WEAKNESS]. Source of Information: patient Exam Limitations: no limitations History of Present Illness: Patient is a 72-year-old male with past medical history significant for significant bilateral upper lobe emphysema (COPD) on 2 L of home oxygen, abdominal aneurysm status post Aortoiliac Graft in 2010, Parkinson's disease, panic attacks, chronic pancreatic calcifications presented to [place] with cough shortness of breath for the past few weeks. He did report having chest pain with cough and slight phlegm production along with body aches. He denies any pressure sensation in the chest worse with breathing or worse with exertion. He did have shortness of breath with exertion for the past few weeks with chest pain. He reportedly bringing whitish phlegm. He is a very poor historian. He became more weak lately after this infection. He smoked for 50 years and quit last year. Denies alcohol or drug intake. Underwent colonoscopy and endoscopy in 2014 with multiple cortical colon polyps removed by Dr. Begum. Allergies/Medications Allergies: Coded Allergies: NSAIDS (Non-Steroidal Anti-Inflamma (ULCER 07/24/16) aspirin (ULCER 07/24/16) hydrocodone (NAUSEA 07/24/16) oxycodone (NAUSEA 07/24/16) Home Med list Albuterol Sulfate (Proair Hfa) 90 MCG HFA.AER.AD 2 PUF INH Q4-6 PRN PRN copd Carbidopa/Levodopa (Carbidopa-Levodopa 25-100 Tab) 25 MG-100 MG TABLET 1 TAB PO BID PARKINSONS (Reported) Clotrimazole/Betamethasone Dip (Clotrimazole-Betamethasone Crm) 1 %-0.05 % CREAM..G. 1 CHALO TOP AD PRN SKIN (Reported) apply to affected area(s) Fluticasone/Vilanterol (Breo Ellipta 100-25 Mcg INH) 100 MCG-25 MCG/DOSE BLST.W.DEV 1 PUFF PO DAILY BREATHING PROBLEMS (Reported) Ipratropium/Albuterol Sulfate (Iprat-Albut 0.5-3(2.5) MG/3 Ml) 0.5 MG-3 MG (2.5 MG BASE)/3 ML AMPUL.NEB 1 INH INH TID RESP (Reported) Lisinopril/Hydrochlorothiazide (Lisinopril-Hctz 20-12.5 MG Tab) 20 MG-12.5 MG TABLET 1 TAB PO BID HTN (Reported) Magnesium Oxide (Magnesium) 400 MG CAPSULE 1 TAB PO BID Supplements Pantoprazole Sodium 40 MG TABLET.DR 1 TAB PO DAILY ACID REFLUX (Reported) Prednisone 5 MG TABLET 1 TAB PO DAILY BREATHING PROBLEMS (Reported) Compliance With Home Meds: UNKNOWN 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 self Services at Home: None Smoking Status: Former Smoker ETOH Use: denies use Illicit Drug Use: denies illicit drug use Functional Ability ADLs Independent: dressing, eating, toileting, bathing. Ambulation: independent IADLs Independent: shopping, housework, finances, food prep, telephone, transportation , medication admin. Review of Systems Review of Systems Constitutional: Reports: see HPI. EENTM: Reports: see HPI. Exam & Diagnostic Data Last 24 Hrs of Vital Signs/I&O Vital Signs Date Time Temp Pulse Resp B/P B/P Pulse O2 O2 Flow FiO2 Mean Ox Delivery Rate 08/21 1337 101.8 120 18 111/57 96 Nasal 3.0L Cannula 08/21 1335 101.8 08/21 1239 100.4 08/21 1228 96 Nasal 4.0L Cannula 08/21 1143 94 Nasal 2.0L Cannula 08/21 1115 100.4 137 30 137/90 94 Room Air Intake & Output 08/21 1600 08/21 0800 08/21 0000 Intake Total 0 Output Total Balance 0 Intake, Oral 0 Patient 72.575 kg Weight Weight Reported by Patient Measurement Method Physical Exam General Appearance Alert, Oriented X3, Cooperative Skin No Rashes, No Breakdown Skin Temp/Moisture Exam: Warm/Dry Sepsis Skin Exam (color): Normal for Ethnicity HEENT Atraumatic, PERRLA Neck Supple Cardiovascular Normal S1, Normal S2 Lungs Normal Air Movement, rhonchorous on the left side of the lung Abdomen Normal Bowel Sounds, Soft, No Tenderness Neurological Normal Speech, Strength at 5/5 X4 Ext Extremities No Clubbing, No Cyanosis, No Edema, Normal Pulses Vascular Normal Pulses, Pulses Symmetrical Last 24 Hrs of Labs/Abran: Laboratory Tests 08/21/17 1535: Lactic Acid Cancelled 08/21/17 1203: Virus Culture Pending 08/21/17 1159: Anion Gap 13, Estimated GFR 31 L, BUN/Creatinine Ratio 17.6, Glucose 101 H, Lactic Acid 1.6, Calcium 9.4, Total Bilirubin 0.5, AST 31, ALT 19 L, Alkaline Phosphatase 74, Troponin I 0.03, Ayd-Q-Mutpffuzspx Pept 996 H, Total Protein 6.5, Albumin 4.1, Globulin 2.4, Albumin/Globulin Ratio 1.7, D-Dimer High Sensitivty 2160 H, CBC w Diff MAN DIFF ORDERED, RBC 4.05 L, MCV 95.6 H, MCH 31.5 H, MCHC 33.0, RDW 14.8 H, MPV 7.6, Gran % 85.4 H, Lymphocytes % 4.0 L, Monocytes % 10.6 H, Eosinophils % 0, Basophils % 0, Absolute Granulocytes 7.9 H, Absolute Lymphocytes 0.4 L, Absolute Monocytes 1.0 H, Absolute Eosinophils 0, Absolute Basophils 0, Normocytic RBCs VERIFIED, Normochromic RBCs VERIFIED Microbiology 08/21 1335 BLOOD: Blood Culture - RECD 08/21 1325 BLOOD: Blood Culture - RECD 08/21 1207 LOWER RESP: Respiratory Culture - ORD 08/21 120 LOWER RESP: Gram Stain - ORD 08/21 120 NASOPHARYN: Influenza Virus A & B Rapid Smear - COMP INFLUENZA TYPE B Assessment/Plan Assessment: Patient is a fair 74-year-old male with significant comorbid conditions including steroid-dependent COPD requiring 2 L of home oxygen, abdominal aortic aneurysm status post aortoiliac graft in 2011, Parkinson's disease, multiple polyps resected by previous colonoscopy presented with shortness of breath and cough for the past 3 weeks associated with whitish phlegm production body aches. Vital signs are significant for temperature of 101.8, pulse rate of 137, blood pressure 137/90 mmHg, saturating on 3 L Floxin. Physical examination did show significant rhonchi on the left side of the lung with decreased air entry in the right side of the lung. Labs are unremarkable except for a creatinine of 2.1 ( appears chronic), chest x-ray did show patchy opacity in the left lower lobe evolving infiltrate in the articular facets. Flu Swab is positive for type B. CT did show left lung 2.5 cm upper lobe spiculated mass highly suggestive of malignancy. Atelectasis and lingula consolidation concerning for pneumonia present. His presentation is consistent with acute viral prodrome which worsen his underlying COPD and resultant likely pneumonia. CT scan did show concerns of new malignancy. Plan Admit to general medicine floor Influenza type B Started on Tamiflu 30 mg twice a day (per renal dosing). TRC/nebs. Aggressive hydration. COPD exacerbation and likely pneumonia secondary to influenza -sepsis Started on IV Solu-Medrol every 12, IV ceftriaxone and azithromycin. Patient requires biopsy depending on his CT results. It is important to keep in mind his previous colonoscopy due to multiple polyps and a secondary pathology should also be considered. History of abdominal aortic aneurysm status post aortoiliac graft Stable currently History of Parkinson's disease Continue carbidopa levodopa History of hypertension Continue lisinopril/hydrocodone is a 20/12.5 mg once a day DVT prophylaxis Subcutaneous heparin CODE STATUS Full code - patient wants this to be confirmed with his Devonte ERNST ( notreachable at the moment) Patient follows Dr. Esquivel for lung and Loulou Lee MD for heart As Ranked By This Provider Problem List: 1. Influenza 2. Pneumonia 3. COPD (chronic obstructive pulmonary disease) 4. Bronchitis 5. COPD with exacerbation Core Measures/Misc (03/29) Acute Coronary Syndrome ACS Diagnosis: No Congestive Heart Failure Congestive Heart Failure Diagnosis No Cerebrovascular Accident CVA/TIA Diagnosis: No VTE (View Protocol) VTE Risk Factors Acute Medical Illness No Mechanical VTE Prophylaxis d/t N/A MechProphylax Ordered No VTE Pharm Prophylaxis d/t NA PharmProphylax ordered Sepsis (View protocol) Sepsis Present: Yes Resident Review Statement Resident Statement: examined this patient, discussed with internet designer, agreed with internet designer, discussed with family, reviewed EMR data (avail), discussed with nursing , discussed with case mgmt, reviewed images, amended to note Other Findings: as above ZacheryTwan 08/21/17 1521: Attending MD Review Statement Attending Statement Attending MD Statement: examined this patient, discuss w/resident/PA/FLAME HARDENING MACHINE OPERATOR, agreed w/resident/PA/FLAME HARDENING MACHINE OPERATOR, discussed with family, reviewed EMR data (avail), discussed with nursing, discussed with case mgmt, reviewed images, amended to note Attending Assessment/Plan: 72-year-old male with past medical history significant for Parkinson disease, HTN, severe COPD, AAA, panic attack, presented in ER with worsening shortness of breath and fever with tachycardia. Patient chest xray with left lower lobe hazy opacity consider early inflitrate. Patient is influenza flu positive. 1. Positive influenza 2. COPD exacerbation 3. acute on chronic respiratroy failure 4. Hypertension 5. AAA 6. CKD 7. Borderline hyperkalemia 8. Parkinson disease. - Admit to inpatient medical services - Oxygen supplementation, iv abx, iv steroids, tamiflu, BDs, Pulm consult if no improvement. - CT chest. - gi/DVT prophylaxis - Adequate pain control, supportive care for parkinson disease - code status Patient will be monitored closely for hemodynamcis and repsiratroy status.
[2017-08-21 17:31] VITALS: BP 100/70
[2017-08-21 22:01] VITALS: BP 102/68
--- NOTE | 2017-08-21 23:22 | CT SCAN REPORT ---
EXAMINATION: CT CHEST WITHOUT CONTRAST CLINICAL INFORMATION: Rule out necrotizing pneumonia. Fever. Flu. Cough. Steroid dependent COPD COMPARISON: Chest x-ray August 21, 2017. CT chest September 11, 2016, August 10, 2015. CT scan abdomen pelvis February 01, 2013 TECHNIQUE: Multidetector volumetric CT imaging of the chest was done. Axial MIP volume rendering provided. Sagittal and coronal reformatted images were obtained. DLP: 213.89 mGy-cm FINDINGS: LUNGS: There is an irregular spiculated mass in the left upper lobe at the left superior hilum. This measures 2 x 2.5 x 2.7 cm. This is highly suspicious of malignancy. There is emphysematous changes of lungs. Linear reticular scarring at lung bases. There is a vague area of reticular opacity seen at the anterior left lung base at the lingula. This is new since prior CAT scan September 11, 2016 consistent with a small infiltrate. MEDIASTINUM: Small shotty lymph nodes in the mediastinum the pretracheal retrovascular space and AP window and subcarina. No bulky adenopathy. There is vascular wall calcifications of the aorta. No aneurysm. This calcifications of the coronary arteries. There is a small hiatal hernia. PLEURA: There is no pleural effusion. No pleural mass or thickening. AXILLA: No lymphadenopathy. UPPER ABDOMEN: There are multiple small hypodensities scattered throughout the liver. These were also seen on the CAT scan of February 01, 2013. These are similar in size and number to the prior CAT scan. Adrenal glands are normal. There is a stent in the upper thoracic abdominal aorta partially visualized with aneurysm of the aorta to a diameter of 3.3 cm at just below the level of renal vascular pedicle. Adrenal glands are normal. OSSEOUS STRUCTURES: Orthopedic plate and screw at lower cervical spine partially imaged. IMPRESSION: 1. Spiculated lesion left upper lobe highly suspicious for malignancy. 2. Emphysematous changes of lung. 3. Shotty lymph nodes of the mediastinum but no bulky adenopathy. 4. Small lingular infiltrate. 5. Multiple small hypodensities scattered throughout the liver. These are stable in size and number to CAT scan of February 01, 2013. 6. Aneurysm of the abdominal aorta. Aortic stent partially visualized. This critical result was discussed with Dr. WEEKS on 08/21/2017, 11:10 PM and it was ascertained that the content and urgency of the report was understood at the time of direct communication.
[2017-08-22 06:29] VITALS: BP 110/70
--- NOTE | 2017-08-22 09:20 | PN- Housestaff ---
Sd DICKERSON,[facility] 08/22/17 0920: Subjective Follow-up For: Dyspnea, cough, and fatigue Subjective: Yesterday TMAX 101.8, she is hemodynamically but BP is running in the lower border of normal, HR is in the 90s this morning. According to the patient has dyspnea and fatigue significantly improved comparing to yesterday. His cough is less frequent but more productive of yellow-green sputum. Review of Systems Constitutional: Denies: chills, fever, weakness. EENTM: Denies: visual changes, hearing changes. Cardiovascular: Denies: chest pain, orthopena, palpitations, peripheral edema. Respiratory: Reports: cough, short of breath, sputum production. Denies: hemoptysis, orthopnea, stridor, wheezing. Gastrointestinal: Denies: abdominal pain, constipation, diarrhea, nausea, vomiting. Genitourinary: Denies: dysuria. Skin: Denies: rash. Objective Last 24 Hrs of Vital Signs/I&O Vital Signs Date Time Temp Pulse Resp B/P B/P Pulse O2 O2 Flow FiO2 Mean Ox Delivery Rate 08/22 1013 126/84 08/22 0815 Nasal 3.0L Cannula 08/22 0629 97.6 94 22 110/70 93 Nasal 3.0L Cannula 08/22 0000 Nasal 3.0L Cannula 08/21 2201 97.6 83 20 102/68 99 08/21 1805 92 Nasal 3.0L Cannula 08/21 1731 97.5 92 20 100/70 97 Nasal 2.0L Cannula 08/21 1626 98.2 91 14 104/59 96 Nasal 3.5L Cannula 08/21 1337 101.8 120 18 111/57 96 Nasal 3.0L Cannula 08/21 1335 101.8 08/21 1239 100.4 08/21 1228 94 Nasal 4.0L Cannula 08/21 1228 96 Nasal 4.0L Cannula Intake & Output 08/22 1600 08/22 0800 08/22 0000 Intake Total 300 Output Total Balance 300 Intake, Oral 300 Patient 63.503 kg Weight Weight Standing Scale Measurement Method Physical Exam General Appearance: Alert, Oriented X3, Cooperative, No Acute Distress Skin: No Rashes HEENT: Atraumatic, PERRLA, EOMI, Mucous Membr. moist/pink Neck: No JVD Cardiovascular: Regular Rate, Normal S1, Normal S2, No Murmurs Lungs: decrease air-entry over lung base bilaterally, mild end-exp wheezing. cough multiple time during physical exam. Abdomen: Soft, No Tenderness Neurological: Normal Speech Extremities: No Clubbing, No Cyanosis, No Edema Current Medications: Current Medications Sig/Good Start time Last Medication Dose Route Stop Time Status Admin Acetaminophen 0 .STK-MED ONE 08/21 1234 DC IV Acetaminophen 1,000 MG ONCE ONE 08/21 1215 DC 08/21 N/A 1 UNIT IV 08/21 1229 1239 Albuterol Sulfate 3 ML EVERY 4 HRS/AWAKE 08/22 1200 AC 08/22 INH 1153 Albuterol Sulfate 3 ML ONCE ONE 08/21 1215 DC 08/21 INH 08/21 1216 1228 Azithromycin 500 MG Q24H 08/22 1300 AC Dextrose/Water 250 ML IV Azithromycin 500 MG ONCE ONE 08/21 1215 DC 08/21 Dextrose/Water 250 ML IV 08/21 1314 1306 Carbidopa/Levodopa 1 TAB BID 08/21 2200 AC 08/22 PO 1013 Ceftriaxone Sodium 1,000 MG Q24H 08/22 1400 AC IV Ceftriaxone Sodium 0 .STK-MED ONE 08/21 1424 DC .ROUTE Ceftriaxone Sodium 1,000 MG ONCE ONE 08/21 1330 DC 08/21 IV 08/21 1331 1422 Guaifenesin 600 MG ONCE ONE 08/21 1230 DC 08/21 PO 08/21 1231 1306 Heparin Sodium 5,000 UNIT Q8 08/21 1445 AC 08/21 (Porcine) SC 2103 Ipratropium [place] 2.5 ML EVERY 4 HRS/AWAKE 08/22 1200 AC 08/22 INH 1153 Ipratropium [place] 2.5 ML ONCE ONE 08/21 1215 DC 08/21 INH 08/21 1216 1228 Lisinopril 20 MG DAILY 08/22 1000 AC 08/22 PO 1013 Magnesium Oxide 400 MG DAILY 08/22 1000 AC 08/22 PO 1013 Methylprednisolone 0 .STK-MED ONE 08/21 1235 DC .ROUTE Methylprednisolone 125 MG ONCE ONE 08/21 1215 DC 08/21 IV 08/21 1216 1239 Omeprazole 40 MG DAILY AC 08/22 0700 AC 08/22 PO 0542 Oseltamivir Phosphate 30 MG BID 08/21 2200 AC 08/22 PO 08/25 2159 1013 Oseltamivir Phosphate 75 MG BID 08/21 1446 DC 08/21 PO 08/25 1445 1519 Oseltamivir Phosphate 30 MG ONCE ONE 08/21 1230 DC 08/21 PO 08/21 1231 1308 Sodium Chloride 1,000 ML BOLUS ONE 08/21 1400 DC IV 08/21 1459 Sodium Chloride 1,000 ML BOLUS ONE 08/21 1345 DC / IV 08/21 1444 1507 Sodium Chloride 500 ML BOLUS ONE 08/21 1215 DC 08/21 IV 08/21 1314 1239 Last 24 Hrs of Lab/Abarn Results Last 24 Hrs of Labs/Mics: Laboratory Tests 08/21/17 1535: Lactic Acid Cancelled 08/21/17 1203: Virus Culture Pending 08/21/17 1159: Anion Gap 13, Estimated GFR 31 L, BUN/Creatinine Ratio 17.6, Glucose 101 H, Lactic Acid 1.6, Calcium 9.4, Total Bilirubin 0.5, AST 31, ALT 19 L, Alkaline Phosphatase 74, Troponin I 0.03, Rye-T-Ndbnamgoabq Pept 996 H, Total Protein 6.5, Albumin 4.1, Globulin 2.4, Albumin/Globulin Ratio 1.7, D-Dimer High Sensitivty 2160 H, CBC w Diff MAN DIFF ORDERED, RBC 4.05 L, MCV 95.6 H, MCH 31.5 H, MCHC 33.0, RDW 14.8 H, MPV 7.6, Gran % 85.4 H, Lymphocytes % 4.0 L, Monocytes % 10.6 H, Eosinophils % 0, Basophils % 0, Absolute Granulocytes 7.9 H, Absolute Lymphocytes 0.4 L, Absolute Monocytes 1.0 H, Absolute Eosinophils 0, Absolute Basophils 0, Normocytic RBCs VERIFIED, Normochromic RBCs VERIFIED Microbiology 08/22 1143 LOWER RESP: Respiratory Culture - ORD 08/22 1143 LOWER RESP: Gram Stain - ORD 08/21 1335 BLOOD: Blood Culture - RECD 08/21 1325 BLOOD: Blood Culture - RECD 08/21 1207 LOWER RESP: Respiratory Culture - COLB 08/21 1207 LOWER RESP: Gram Stain - COLB 08/21 1203 NASOPHARYN: Influenza Virus A & B Rapid Smear - COMP INFLUENZA TYPE B Assessment/Plan Assessment: 72-year-old man with multiple history including but not limited to COPD, 2 L home oxygen oxygen dependent, presented with dyspnea, cough, fever, chills, and fatigue. On admission patient met 3 out of 4 SIRS criteria (tachycardia, tachypnea, & fever), and was found to be flu B positive, with symptoms suggestive community-acquired pneumonia. CT chest showed a spiculated lesion >2 cm highly suggestive of malignancy. Plan #Sepsis with acute respiratory failure secondary to flu and symptom of CAP * Patient will be treated with Tamiflu(adjusted dose because of CKD) * We will continue albuterol/ipratropium nebs * We will continue ceftriaxone and azithromycin for possible pneumonia * Pending sputum culture #Lung mass * PET can be done as an outpatient, as per ergonomics consultant. #Parkinson disease * Continue carbidopa/levodopa #Has a history of stable abdominal aortic aneurysm(status post aortoiliac graft) * NTD Full code DVT prophylaxis with mechanical and pharmacological Heart healthy diet Problem List: 1. Influenza 2. Pneumonia 3. Sepsis 4. COPD (chronic obstructive pulmonary disease) Pain Ratin Pain Location: N/A Pain Goal: Remain pain free Pain Plan: See A&P Tomorrow's Labs & Rationales: CBC and BEP to f/u WBCs, potassium, and renal function Hung DICKERSON,[facility] 08/22/17 1427: Attending MD Review Statement Attending Statement Attending MD Statement: examined this patient, discuss w/resident/PA/SALESPERSON WIGS, agreed w/resident/PA/SALESPERSON WIGS, reviewed EMR data (avail), discussed with nursing, discussed with case mgmt, reviewed images, amended to note Attending Assessment/Plan: Patient seen and examined, claims that overall he is feeling better in terms of his breathing. Vital Signs Date Time Temp Pulse Resp B/P B/P Pulse O2 O2 Flow FiO2 Mean Ox Delivery Rate 08/22 1013 126/84 08/22 0815 Nasal 3.0L Cannula 08/22 0800 Nasal 3.0L Cannula 08/22 0629 97.6 94 22 110/70 93 Nasal 3.0L Cannula 08/22 0000 Nasal 3.0L Cannula 08/21 2201 97.6 83 20 102/68 99 08/21 1805 92 Nasal 3.0L Cannula 08/21 1731 97.5 92 20 100/70 97 Nasal 2.0L Cannula 08/21 1626 98.2 91 14 104/59 96 Nasal 3.5L Cannula on exam; aox3, nad. cv; s1,s2, rrr resp; clear with overall decreased bs. abd; soft, nt, bs+ ext; no edema. Laboratory Tests 08/22 08/21 1318 1535 Chemistry Sodium Pending Potassium Pending Chloride Pending Carbon Dioxide Pending Anion Gap Pending BUN Pending Creatinine Pending BUN/Creatinine Ratio Pending Lactic Acid Cancelled Hematology CBC w Diff Pending WBC Pending RBC Pending Hgb Pending Hct Pending MCV Pending MCH Pending MCHC Pending RDW Pending Plt Count Pending MPV Pending Gran % Pending Lymphocytes % Pending Monocytes % Pending Eosinophils % Pending Basophils % Pending Absolute Granulocytes Pending Absolute Lymphocytes Pending Absolute Monocytes Pending Absolute Eosinophils Pending Absolute Basophils Pending A/P; 72 y/o M with pmh sig for chronic respiratory failure, bilateral upper lobe emphysema (COPD) on 2 L of home oxygen, abdominal aneurysm status post Aortoiliac Graft in 2010, Parkinson's disease, panic attacks, chronic pancreatic calcifications admitted with sepsis secondary to community aquired pneumonia, acute on chronic respiratory failure and found to have a lung mass. He is also influenza B+. Patient currently getting treated with IV antibiotics, Tamiflu, TRC nebs. Has been evaluated by pulmonology. Further workup for the lung mass would be done as an outpatient. DVT prophylaxis: heparin subcutaneous
--- NOTE | 2017-08-22 11:16 | Cons- Pulmonary ---
General Information and HPI Consulting Request Date of Consult: 08/22/17 Requested By: Dr. Frost Reason for Consult: Exacerbation of COPD left lung mass History of Present Illness: Patient is 72-year-old with severe COPD oxygen dependent admitted with increasing respiratory symptoms secondary to influenza be an exacerbation of COPD. CT scan of the chest shows a left upper lobe mass lesion is not present on screening CT scan 11 months ago. Allergies/Medications Allergies: Coded Allergies: NSAIDS (Non-Steroidal Anti-Inflamma (ULCER 07/24/16) aspirin (ULCER 07/24/16) hydrocodone (NAUSEA 07/24/16) oxycodone (NAUSEA 07/24/16) Home Med List: Albuterol Sulfate (Proair Hfa) 90 MCG HFA.AER.AD 2 PUF INH Q4-6 PRN PRN copd Carbidopa/Levodopa (Carbidopa-Levodopa 25-100 Tab) 25 MG-100 MG TABLET 1 TAB PO BID PARKINSONS (Reported) Clotrimazole/Betamethasone Dip (Clotrimazole-Betamethasone Crm) 1 %-0.05 % CREAM..G. 1 CHALO TOP AD PRN SKIN (Reported) apply to affected area(s) Fluticasone/Vilanterol (Breo Ellipta 100-25 Mcg INH) 100 MCG-25 MCG/DOSE BLST.W.DEV 1 PUFF PO DAILY BREATHING PROBLEMS (Reported) Ipratropium/Albuterol Sulfate (Iprat-Albut 0.5-3(2.5) MG/3 Ml) 0.5 MG-3 MG (2.5 MG BASE)/3 ML AMPUL.NEB 1 INH INH TID RESP (Reported) Lisinopril/Hydrochlorothiazide (Lisinopril-Hctz 20-12.5 MG Tab) 20 MG-12.5 MG TABLET 1 TAB PO BID HTN (Reported) Magnesium Oxide (Magnesium) 400 MG CAPSULE 1 TAB PO BID Supplements Pantoprazole Sodium 40 MG TABLET.DR 1 TAB PO DAILY ACID REFLUX (Reported) Prednisone 5 MG TABLET 1 TAB PO DAILY BREATHING PROBLEMS (Reported) Review of Systems Review of Systems Constitutional: Denies: chills, fever. Cardiovascular: Denies: chest pain, edema. Respiratory: Reports: cough, short of breath, sputum production, wheezing. Denies: hemoptysis. GI: Denies: abdominal pain, diarrhea, melena. 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 Surgical History Surgical History: non-contributory Family History Relations & Conditions If Any: Relation not specified for: *No pertinent family history Psychosocial History Services at Home: None Smoking Status: Former Smoker ETOH Use: denies use Exam & Diagnostic Data Last 24 Hrs of Vital Signs/I&O Vital Signs Date Time Temp Pulse Resp B/P B/P Pulse O2 O2 Flow FiO2 Mean Ox Delivery Rate 08/22 1013 126/84 08/22 0629 97.6 94 22 110/70 93 Nasal 3.0L Cannula 08/22 0000 Nasal 3.0L Cannula 08/21 2201 97.6 83 20 102/68 99 08/21 1805 92 Nasal 3.0L Cannula 08/21 1731 97.5 92 20 100/70 97 Nasal 2.0L Cannula 08/21 1626 98.2 91 14 104/59 96 Nasal 3.5L Cannula 08/21 1337 101.8 120 18 111/57 96 Nasal 3.0L Cannula 08/21 1335 101.8 08/21 1239 100.4 08/21 1228 94 Nasal 4.0L Cannula 08/21 1228 96 Nasal 4.0L Cannula 08/21 1143 94 Nasal 2.0L Cannula 08/21 1115 100.4 137 30 137/90 94 Room Air Intake & Output 08/22 1600 08/22 0800 08/22 0000 Intake Total 300 Output Total Balance 300 Intake, Oral 300 Patient 140 lb Weight Weight Standing Scale Measurement Method Patient is comfortable gentleman 3 L 93% exam of his chest shows decreased breath sounds are no wheezes cardiac exam shows regular S1 and S2 without murmurs abdomen is soft nontender there's no edema Last 48 Hrs of Labs/Abran: Laboratory Tests 08/21/17 1535: Lactic Acid Cancelled 08/21/17 1203: Virus Culture Pending 08/21/17 1159: Anion Gap 13, Estimated GFR 31 L, BUN/Creatinine Ratio 17.6, Glucose 101 H, Lactic Acid 1.6, Calcium 9.4, Total Bilirubin 0.5, AST 31, ALT 19 L, Alkaline Phosphatase 74, Troponin I 0.03, Flr-Z-Eqqwjymllvg Pept 996 H, Total Protein 6.5, Albumin 4.1, Globulin 2.4, Albumin/Globulin Ratio 1.7, D-Dimer High Sensitivty 2160 H, CBC w Diff MAN DIFF ORDERED, RBC 4.05 L, MCV 95.6 H, MCH 31.5 H, MCHC 33.0, RDW 14.8 H, MPV 7.6, Gran % 85.4 H, Lymphocytes % 4.0 L, Monocytes % 10.6 H, Eosinophils % 0, Basophils % 0, Absolute Granulocytes 7.9 H, Absolute Lymphocytes 0.4 L, Absolute Monocytes 1.0 H, Absolute Eosinophils 0, Absolute Basophils 0, Normocytic RBCs VERIFIED, Normochromic RBCs VERIFIED Microbiology 08/21 1203 NASOPHARYN: Influenza Virus A & B Rapid Smear - COMP INFLUENZA TYPE B Assessment/Plan Impression/Plan: 72-year-old with severe oxygen-dependent COPD admitted with exacerbation secondary to influenza be. He was found to have a left upper lobe mass which likely represents malignancy will need further evaluation Recommendations: Obtain sputum for cytology and culture. Continue steroids antibiotics and Tamiflu. Taper FiO2 his saturations allow. Patient will have outpatient PET scan Consult Acknowledgment - Thank you for your consult request.
[2017-08-22 14:14] LABS: ABSOLUTE BASOPHIL COUNT 0 /CUMM (0.0-0.2); ABSOLUTE EOSINOPHIL COUNT 0 /CUMM (0.0-0.7); ABSOLUTE GRANULOCYTE CT 11.5 /CUMM (1.4-6.5); ABSOLUTE MONOCYTE COUNT 0.9 /CUMM (0.10-0.60); BASOPHIL % 0.3 % (0.0-2.0); EOSINOPHIL % 0 % (0-5); GRANULOCYTE % 85.4 % (42.2-75.2); HEMATOCRIT 37.1 % (42-52); MEAN CORPUSCULAR HGB 31.5 PG (27.0-31.0); MEAN CORPUSCULAR HGB CONC 32.9 G/DL (33.0-37.0); MEAN CORPUSCULAR VOLUME 95.8 FL (80.0-94.0); PLATELET COUNT 235 /CUMM (130-400); RBC DISTRIBUTION WIDTH 14.7 % (11.5-14.5); RED BLOOD CELL CT 3.87 /CUMM (4.70-6.10); WHITE BLOOD CELL COUNT 13.4 /CUMM (4.8-10.8)
[2017-08-22 14:39] VITALS: BP 108/64
[2017-08-22 22:40] VITALS: BP 92/50
[2017-08-23 06:41] VITALS: BP 118/70
[2017-08-23 08:38] LABS: ABSOLUTE BASOPHIL COUNT 0 /CUMM (0.0-0.2); ABSOLUTE EOSINOPHIL COUNT 0 /CUMM (0.0-0.7); ABSOLUTE GRANULOCYTE CT 6.3 /CUMM (1.4-6.5); ABSOLUTE LYMPH COUNT 0.7 /CUMM (1.2-3.4); ABSOLUTE MONOCYTE COUNT 0.6 /CUMM (0.10-0.60); BASOPHIL % 0.1 % (0.0-2.0); EOSINOPHIL % 0.5 % (0-5); GRANULOCYTE % 81.9 % (42.2-75.2); HEMATOCRIT 35.4 % (42-52); MEAN CORPUSCULAR HGB 32.1 PG (27.0-31.0); MEAN CORPUSCULAR HGB CONC 33.6 G/DL (33.0-37.0); MEAN CORPUSCULAR VOLUME 95.6 FL (80.0-94.0); MEAN PLATELET VOLUME 8.1 FL (7.4-10.4); PLATELET COUNT 229 /CUMM (130-400); RBC DISTRIBUTION WIDTH 14.5 % (11.5-14.5); WHITE BLOOD CELL COUNT 7.7 /CUMM (4.8-10.8)
--- NOTE | 2017-08-23 08:47 | PN- Housestaff ---
See Addendum Subjective Follow-up For: Dyspnea, cough, and fatigue Subjective: Afebrile, hemodynamically stable, and HR in 80s. This morning the patient was depressed and crying about the possible lung cancer mass that was seen on chest CT. The patient was also complaining of dyspnea that he thinks just because it is time form his nebs. Review of Systems Constitutional: Reports: see HPI. Objective Last 24 Hrs of Vital Signs/I&O Vital Signs Date Time Temp Pulse Resp B/P B/P Pulse O2 O2 Flow FiO2 Mean Ox Delivery Rate 08/23 0641 98.2 110 22 118/70 94 Nasal Cannula 08/23 0000 Nasal 3.0L Cannula 08/22 2240 98.1 93 20 92/50 96 Nasal 2.0L Cannula 08/22 1745 94 Nasal 2.0L Cannula 08/22 1600 Nasal 2.0L Cannula 08/22 1439 97.8 96 20 108/64 98 08/22 1013 126/84 Intake & Output 08/23 1600 08/23 0800 08/23 0000 Intake Total 200 200 Output Total Balance 200 200 Intake, Oral 200 200 Physical Exam General Appearance: Alert, Oriented X3, Cooperative, No Acute Distress Skin: No Rashes HEENT: Atraumatic, PERRLA, EOMI, Mucous Membr. moist/pink Neck: No JVD Cardiovascular: Regular Rate, Normal S1, Normal S2, No Murmurs Lungs: decrease air-entery over lungs b/l. mild wheezing Abdomen: Soft, No Tenderness Neurological: Normal Speech, sad Extremities: No Clubbing, No Cyanosis, No Edema Current Medications: Current Medications Sig/Good Start time Last Medication Dose Route Stop Time Status Admin Albuterol Sulfate 3 ML EVERY 4 HRS/AWAKE 08/22 1200 AC 08/23 INH 1025 Alprazolam 0.5 MG ONCE ONE 08/23 09 DC 08/23 PO 08/23 09 1055 Azithromycin 500 MG Q24H 08/22 1300 AC 08/22 Dextrose/Water 250 ML IV 1411 Carbidopa/Levodopa 1 TAB BID 08/21 2200 AC 08/23 PO 1056 Ceftriaxone Sodium 1,000 MG Q24H 08/22 1400 AC 08/22 IV 1411 Guaifenesin/ 10 ML Q4P PRN 08/23 09 AC Dextromethorphan PO Heparin Sodium 5,000 UNIT Q8 08/21 1445 AC 08/21 (Porcine) SC 2103 Ipratropium [place] 2.5 ML EVERY 4 HRS/AWAKE 08/22 1200 AC 08/23 INH 1026 Lisinopril 20 MG DAILY 08/22 1000 AC 08/23 PO 1056 Magnesium Oxide 400 MG DAILY 08/22 1000 AC 08/23 PO 1056 Omeprazole 40 MG DAILY AC 08/22 0700 AC 08/23 PO 0555 Oseltamivir Phosphate 30 MG BID 08/21 2200 AC 08/23 PO 08/25 2159 1056 Last 24 Hrs of Lab/Abran Results Last 24 Hrs of Labs/Mics: Laboratory Tests 08/23/17 0755: Anion Gap 12, Estimated GFR 43 L, BUN/Creatinine Ratio 25.6 H, CBC w Diff NO MAN DIFF REQ, RBC 3.70 L, MCV 95.6 H, MCH 32.1 H, MCHC 33.6, RDW 14.5, MPV 8.1, Gran % 81.9 H, Lymphocytes % 9.6 L, Monocytes % 7.9, Eosinophils % 0.5, Basophils % 0.1, Absolute Granulocytes 6.3, Absolute Lymphocytes 0.7 L, Absolute Monocytes 0.6, Absolute Eosinophils 0, Absolute Basophils 0 08/22/17 1318: Anion Gap 15, Estimated GFR 40 L, BUN/Creatinine Ratio 28.8 H, CBC w Diff MAN DIFF ORDERED, RBC 3.87 L, MCV 95.8 H, MCH 31.5 H, MCHC 32.9 L, RDW 14.7 H, MPV 8.0, Gran % 85.4 H, Lymphocytes % 7.3 L, Monocytes % 7.0, Eosinophils % 0, Basophils % 0.3, Absolute Granulocytes 11.5 H, Segmented Neutrophils 77 H, Band Neutrophils 13 H, Absolute Lymphocytes 1.0 L, Lymphocytes 6 L, Monocytes 4, Absolute Monocytes 0.9 H, Absolute Eosinophils 0, Absolute Basophils 0, Platelet Estimate ADEQUATE, Normocytic RBCs VERIFIED, Normochromic RBCs VERIFIED Microbiology 08/22 1143 LOWER RESP: Respiratory Culture - COLB 08/22 114 LOWER RESP: Gram Stain - COLB Assessment/Plan Assessment: 72-year-old man with multiple history including but not limited to COPD, 2 L home oxygen oxygen dependent, presented with dyspnea, cough, fever, chills, and fatigue. On admission patient met 3 out of 4 SIRS criteria (tachycardia, tachypnea, & fever), and was found to be flu B positive, with symptoms suggestive community-acquired pneumonia. CT chest showed a spiculated lesion >2 cm highly suggestive of malignancy. 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 * will have to follow with hem/onc as an out patient #Parkinson disease * Continue carbidopa/levodopa #Has a history of stable abdominal aortic aneurysm(status post aortoiliac graft) * NTD Full code DVT prophylaxis with mechanical and pharmacological Heart healthy diet Problem List: 1. Pneumonia 2. Influenza Pain Ratin Pain Location: na Pain Goal: Remain pain free Pain Plan: See A&P Tomorrow's Labs & Rationales: See A&P
--- NOTE | 2017-08-23 10:48 | PN- Pulmonary ---
Subjective HPI/Critical Care Issues: Patient continues to feel short of breath and has been made aware of the new CAT scan findings and probability of the lung cancer Objective Current Medications: Current Medications Sig/Good Start time Last Medication Dose Route Stop Time Status Admin Albuterol Sulfate 3 ML EVERY 4 HRS/AWAKE 08/22 1200 AC 08/23 INH 1025 Alprazolam 0.5 MG ONCE ONE 08/23 0900 DC PO 08/23 0901 Azithromycin 500 MG Q24H 08/22 1300 AC 08/22 Dextrose/Water 250 ML IV 1411 Carbidopa/Levodopa 1 TAB BID 08/21 2200 AC 08/22 PO 2155 Ceftriaxone Sodium 1,000 MG Q24H 08/22 1400 AC 08/22 IV 1411 Guaifenesin/ 10 ML Q4P PRN 08/23 09 AC Dextromethorphan PO Heparin Sodium 5,000 UNIT Q8 08/21 1445 AC 08/21 (Porcine) SC 2103 Ipratropium [place] 2.5 ML EVERY 4 HRS/AWAKE 08/22 1200 AC 08/23 INH 1026 Lisinopril 20 MG DAILY 08/22 1000 AC 08/22 PO 1013 Magnesium Oxide 400 MG DAILY 08/22 1000 AC 08/22 PO 1013 Omeprazole 40 MG DAILY AC 08/22 0700 AC 08/23 PO 0555 Oseltamivir Phosphate 30 MG BID 08/21 2200 AC 08/22 PO 08/25 2159 2155 Vital Signs & I&O Last 24 Hrs of Vitals and I&O: Vital Signs Date Time Temp Pulse Resp B/P B/P Pulse O2 O2 Flow FiO2 Mean Ox Delivery Rate 08/23 1029 97 Nasal 2.0L Cannula 08/23 0641 98.2 110 22 118/70 94 Nasal Cannula 08/23 0000 Nasal 3.0L Cannula 08/22 2240 98.1 93 20 92/50 96 Nasal 2.0L Cannula 08/22 1745 94 Nasal 2.0L Cannula 08/22 1600 Nasal 2.0L Cannula 08/22 1439 97.8 96 20 108/64 98 Intake & Output 08/23 1600 08/23 0800 08/23 0000 Intake Total 200 200 Output Total Balance 200 200 Intake, Oral 200 200 Since saturation 2 L 97% exam of his chest shows occasional wheezing cardiac exam shows normal S1 and S2 without murmurs Impression/Plan Impression/Plan Impression/Plan: 72-year-old with severe oxygen-dependent COPD admitted with exacerbation secondary to influenza be. He was found to have a left upper lobe mass which likely represents malignancy will need further evaluation of persistent shortness of breath would start IV steroids Recommendations: Obtain sputum for cytology and culture. Begin steroid steroids complete antibiotics and Tamiflu. Taper FiO2 his saturations allow. Patient will have outpatient PET scan
[2017-08-23 15:27] VITALS: BP 100/56
[2017-08-23 22:47] VITALS: BP 120/72
[2017-08-24 07:33] VITALS: BP 122/70
--- NOTE | 2017-08-24 08:17 | PN- Pulmonary ---
Subjective HPI/Critical Care Issues: Patient shortness breath is improved. Objective Current Medications: Current Medications Sig/Good Start time Last Medication Dose Route Stop Time Status Admin Albuterol Sulfate 3 ML EVERY 4 HRS/AWAKE 08/22 1200 AC 08/24 INH 0812 Alprazolam 0.5 MG ONCE ONE 08/23 0900 DC 08/23 PO 08/23 0901 1055 Azithromycin 500 MG Q24H 08/22 1300 AC 08/23 Dextrose/Water 250 ML IV 1343 Carbidopa/Levodopa 1 TAB BID 08/21 2200 AC 08/23 PO 2114 Ceftriaxone Sodium 1,000 MG Q24H 08/22 1400 AC 08/23 IV 1343 Guaifenesin/ 10 ML Q4P PRN 08/23 0900 AC 08/23 Dextromethorphan PO 1130 Heparin Sodium 5,000 UNIT Q8 08/21 1445 AC 08/21 (Porcine) SC 2103 Ipratropium [place] 2.5 ML EVERY 4 HRS/AWAKE 08/22 1200 AC 08/24 INH 0812 Lisinopril 20 MG DAILY 08/22 1000 AC 08/23 PO 1056 Magnesium Oxide 400 MG DAILY 08/22 1000 AC 08/23 PO 1056 Methylprednisolone 40 MG Q8 08/23 1652 AC 08/24 IV 0545 Omeprazole 40 MG DAILY AC 08/22 0700 AC 08/24 PO 0545 Oseltamivir Phosphate 30 MG BID 08/21 2200 AC 08/23 PO 08/25 2159 2114 Vital Signs & I&O Last 24 Hrs of Vitals and I&O: Vital Signs Date Time Temp Pulse Resp B/P B/P Pulse O2 O2 Flow FiO2 Mean Ox Delivery Rate 08/24 0733 98.0 101 24 122/70 91 Nasal 2.0L Cannula 08/24 0000 Nasal 3.0L Cannula 08/23 2247 98.2 102 24 120/72 93 Nasal 2.0L Cannula 08/23 1845 94 Nasal 2.0L Cannula 08/23 1600 Nasal 3.0L Cannula 08/23 1527 94.0 88 20 100/56 97 08/23 1056 88 136/84 08/23 1029 97 Nasal 2.0L Cannula Intake & Output 08/24 1600 08/24 0800 08/24 0000 Intake Total 200 200 Output Total Balance 200 200 Intake, Oral 200 200 Oxygen saturation 2 L 91% exam of his chest shows diminished breath sounds there are no wheezes or crackles cardiac exam shows regular S1 and S2 without murmurs Impression/Plan Impression/Plan Impression/Plan: 72-year-old with severe oxygen-dependent COPD admitted with exacerbation secondary to influenza b. He was found to have a left upper lobe mass which likely represents malignancy will need further evaluation as an outpatient Recommendations: Patient is clinically improved will need oxygen at discharge and outpatient follow-up with PET scan. Complete outpatient oral antibiotics and Tamiflu
--- NOTE | 2017-08-24 08:51 | PN- Housestaff ---
Jeanette DICKERSON,Carlos 08/24/17 0851: Subjective Follow-up For: Influenza copd exacerbation lung nodule Subjective: patient not feeling well in general, complains of malaise and fatigue, persistent dyspnea, productive cough is improved but patient doesn't think he will be able to go up the many stairs required to go home, patient was upset and anxious about the lung nodule suspicious for malignancy Review of Systems Constitutional: Reports: see HPI. Objective Last 24 Hrs of Vital Signs/I&O Vital Signs Date Time Temp Pulse Resp B/P B/P Pulse O2 O2 Flow FiO2 Mean Ox Delivery Rate 08/24 1420 98.2 90 21 130/70 92 08/24 1047 98.0 101 24 122/70 08/24 0815 92 Nasal 2.0L Cannula 08/24 0733 98.0 101 24 122/70 91 Nasal 2.0L Cannula 08/24 0000 Nasal 3.0L Cannula 08/23 2247 98.2 102 24 120/72 93 Nasal 2.0L Cannula 08/23 1845 94 Nasal 2.0L Cannula 08/23 1600 Nasal 3.0L Cannula 08/23 1527 94.0 88 20 100/56 97 Intake & Output 08/24 1600 08/24 0800 08/24 0000 Intake Total 200 200 Output Total Balance 200 200 Intake, Oral 200 200 Physical Exam General Appearance: Alert, Oriented X3, Cooperative, No Acute Distress, on supplemental oxygen Cardiovascular: Regular Rate, Normal S1, Normal S2, No Murmurs Lungs: diffuse wheezing Abdomen: Normal Bowel Sounds, Soft, No Tenderness, No Masses Extremities: No Clubbing, No Cyanosis, No Edema, Normal Pulses Current Medications: Current Medications Sig/Good Start time Last Medication Dose Route Stop Time Status Admin Albuterol Sulfate 3 ML TID 08/24 1000 AC 08/24 INH 1320 Albuterol Sulfate 3 ML EVERY 4 HRS/AWAKE 08/22 1200 DC 08/24 INH 0812 Azithromycin 500 MG Q24H 08/22 1300 DC 08/23 Dextrose/Water 250 ML IV 1343 Carbidopa/Levodopa 1 TAB BID 08/21 2200 AC 08/24 PO 1047 Ceftriaxone Sodium 1,000 MG Q24H 08/22 1400 DC 08/23 IV 1343 Guaifenesin/ 10 ML Q4P PRN 08/23 0900 AC 08/23 Dextromethorphan PO 1130 Heparin Sodium 5,000 UNIT Q8 08/21 1445 AC 08/21 (Porcine) SC 2103 Ipratropium [place] 2.5 ML TID 08/24 1000 AC 08/24 INH 1318 Ipratropium [place] 2.5 ML EVERY 4 HRS/AWAKE 08/22 1200 DC 08/24 INH 0812 Lisinopril 20 MG DAILY 08/22 1000 AC 08/24 PO 1047 Magnesium Oxide 400 MG DAILY 08/22 1000 AC 08/24 PO 1047 Methylprednisolone 40 MG ONCE ONE 08/24 1500 AC 08/24 IV 08/24 1501 1433 Methylprednisolone 40 MG Q8 08/23 1652 DC 08/24 IV 0545 Omeprazole 40 MG DAILY AC 08/22 0700 AC 08/24 PO 0545 Oseltamivir Phosphate 30 MG BID 08/21 2200 AC 08/24 PO 08/25 2159 1228 Prednisone 50 MG DAILY 08/25 1000 AC PO Last 24 Hrs of Lab/Abran Results Last 24 Hrs of Labs/Mics: Laboratory Tests 08/24/17 1023: Anion Gap 15, Estimated GFR 43 L, BUN/Creatinine Ratio 25.6 H Assessment/Plan Assessment: 72-year-old man with multiple history including but not limited to COPD, 2 L home oxygen oxygen dependent, presented with dyspnea, cough, fever, chills, and fatigue. On admission patient met 3 out of 4 SIRS criteria (tachycardia, tachypnea, & fever), and was found to be flu B positive, with symptoms suggestive community-acquired pneumonia. CT chest showed a spiculated lesion >2 cm highly suggestive of malignancy. Plan #Sepsis with acute respiratory failure secondary to flu and CAP * Continue Tamiflu (adjusted dose because of CKD) * Continue albuterol/ipratropium nebs * Hazy opacity on cxr, CT shows small lingular infiltrate and suspiscious spiculated FATIMAH nodule Continue ceftriaxone and azithromycin for CAP day 4 Fevers likely secondary to influenza rather than significant pneumonia Sputum culture not received, blood culture negative #Lung mass * PET can be done as an outpatient, as per hospital admissions officer. * will have to follow with pulmonology as an outpatient, probably rad-onc referral #Parkinson disease * Continue carbidopa/levodopa Heart healthy diet DVT ppx-heparin 5000 units subcutaneous q8h Full code Problem List: 1. Pneumonia 2. Influenza 3. Sepsis 4. Fever 5. COPD (chronic obstructive pulmonary disease) Pain Ratin Pain Location: n/a Pain Goal: Pain 4 or less Pain Plan: prn Tomorrow's Labs & Rationales: bep, borderline hyperkalemia Gabby Mars MD 08/24/17 1214: Attending MD Review Statement Attending Statement Attending MD Statement: examined this patient, discuss w/resident/PA/DIRECTOR ATHLETIC, agreed w/resident/PA/DIRECTOR ATHLETIC, reviewed EMR data (avail) Attending Assessment/Plan: Patient is feeling better today, however he still has wheezes on exam. He is concerned about going home as he has 51 steps leading up to his apartment and he isn't sure if he can do them. Will continue Solumedrol taper, nebulizer treatments, Tamiflu, and obtain PT evaluation.
--- NOTE | 2017-08-24 09:23 | Patient Discharge Instructions ---
Discharge Instructions General Discharge Information You were seen/treated for: copd exacerbation community acquired pneumonia Special Instructions: You were recommended to go to rehabilitation for significant difficulty breathing with exeriton. You have decided to leave the hospital home instead against medical advice. Take you steroids as prescribed. Follow up with your lung doctor and the COPD clinic. Please return to the hospital or call 911 for significant difficulty breathing. Acute Coronary Syndrome Inclusion Criteria At DC or during hospital stay patient has or had the following: ACS DIAGNOSIS No Discharge Core Measures Meds if any: Prescribed or Continued at Discharge Meds if any: NOT Prescribed or Continued at Discharge Congestive Heart Failure Inclusion Criteria At DC or during hospital stay patient has or had the following: CHF DIAGNOSIS No Discharge Core Measures Meds if any: Prescribed or Continued at Discharge Meds if any: NOT Prescribed or Continued at Discharge Cerebrovascular accident Inclusion Criteria At DC or during hospital stay patient has or had the following: CVA/TIA Diagnosis No Discharge Core Measures Meds if any: Prescribed or Continued at Discharge Meds if any: NOT Prescribed or Continued at Discharge Venous thromboembolism Inclusion Criteria VTE Diagnosis No VTE Type NONE VTE Confirmed by (Test) NONE Discharge Core Measures - Per Current guidelines, there needs to be overlap - treatment for the first 5 days of Warfarin therapy. - If discharged on Warfarin prior to 5 days of - overlap therapy, the patient will need to be - assessed for post discharge needs including - *Post discharge parental anticoagulation - *Warfarin and/or parental anticoagulation education - *Follow up date to check INR post discharge At least 5 days overlap therapy as Inpatient No Meds if any: Prescribed or Continued at Discharge Note: Overlap Therapy is Warfarin and Anticoagulant Meds if any: NOT Prescribed or Continued at Discharge
[2017-08-24] MEDS ORDERED: PREDNISONE10 M2 PO (11:19)
[2017-08-24 14:20] VITALS: BP 130/70
[2017-08-24 22:13] VITALS: BP 112/70
[2017-08-25 05:48] VITALS: BP 100/62
--- NOTE | 2017-08-25 07:40 | PN- Housestaff ---
See Addendum Subjective Follow-up For: Influenza copd exacerbation lung nodule Subjective: patient complains of fatigue, persistent extertional dyspnea, productive cough is improved desires to ambulate with PT today before doing stairs at home patient was complaining of some stress related abdominal pain because of lost keys at home Review of Systems Constitutional: Reports: see HPI. Objective Last 24 Hrs of Vital Signs/I&O Vital Signs Date Time Temp Pulse Resp B/P B/P Pulse O2 O2 Flow FiO2 Mean Ox Delivery Rate 08/25 0840 95 Nasal 2.0L Cannula 08/25 0548 97.5 84 20 100/62 93 Nasal 2.0L Cannula 08/25 0000 96 Nasal 3.0L Cannula 08/24 2213 98.2 73 20 112/70 96 08/24 1900 94 Nasal 2.0L Cannula 08/24 1600 Nasal 3.0L Cannula 08/24 1420 98.2 90 21 130/70 92 08/24 1047 98.0 101 24 122/70 Intake & Output 08/25 1600 08/25 0800 08/25 0000 Intake Total 50 550 Output Total Balance 50 550 Intake, IV 0 250 Intake, Oral 50 300 Number 0 Bowel Movements Physical Exam General Appearance: Alert, Oriented X3, Cooperative, No Acute Distress Cardiovascular: Regular Rate, Normal S1, Normal S2, No Murmurs Lungs: Clear to Auscultation, limited air movement, but clear no audible wheezing Abdomen: Normal Bowel Sounds, Soft, No Tenderness, No Masses Extremities: No Clubbing, No Cyanosis, No Edema, Normal Pulses Current Medications: Current Medications Sig/Good Start time Last Medication Dose Route Stop Time Status Admin Al Hydroxide/Mg 30 ML ONCE ONE 08/25 0845 DC Hydroxide PO 08/25 0846 Albuterol Sulfate 3 ML TID 08/24 1000 AC 08/25 INH 0837 Azithromycin 500 MG Q24H 08/24 1500 AC 08/24 Dextrose/Water 250 ML IV 1615 Azithromycin 500 MG Q24H 08/22 1300 DC 08/23 Dextrose/Water 250 ML IV 1343 Carbidopa/Levodopa 1 TAB BID 08/21 2200 AC 08/24 PO 2105 Ceftriaxone Sodium 1,000 MG Q24H 08/24 1500 AC 08/24 IV 1615 Ceftriaxone Sodium 1,000 MG Q24H 08/22 1400 DC 08/23 IV 1343 Guaifenesin/ 10 ML Q4P PRN 08/23 0900 AC 08/23 Dextromethorphan PO 1130 Heparin Sodium 5,000 UNIT Q8 08/21 1445 AC 08/21 (Porcine) SC 2103 Ipratropium [place] 2.5 ML TID 08/24 1000 AC 08/25 INH 0837 Lisinopril 20 MG DAILY 08/22 1000 AC 08/24 PO 1047 Magnesium Oxide 400 MG DAILY 08/22 1000 AC 08/24 PO 1047 Methylprednisolone 40 MG ONCE ONE 08/24 1500 DC 08/24 IV 08/24 1501 1433 Methylprednisolone 40 MG Q8 08/23 1652 DC 08/24 IV 0545 Omeprazole 40 MG DAILY AC 08/22 0700 AC 08/25 PO 0654 Oseltamivir Phosphate 30 MG BID 08/21 2200 AC 08/24 PO 08/25 2159 2105 Prednisone 50 MG DAILY 08/25 1000 AC PO Last 24 Hrs of Lab/Abran Results Last 24 Hrs of Labs/Mics: Laboratory Tests 08/25/17 0720: Sodium Pending, Potassium Pending, Chloride Pending, Carbon Dioxide Pending, Anion Gap Pending, BUN Pending, Creatinine Pending, BUN/Creatinine Ratio Pending 08/24/17 1023: Anion Gap 15, Estimated GFR 43 L, BUN/Creatinine Ratio 25.6 H Assessment/Plan Assessment: 72-year-old man with multiple history including but not limited to COPD, 2 L home oxygen oxygen dependent, presented with dyspnea, cough, fever, chills, and fatigue. On admission patient met 3 out of 4 SIRS criteria (tachycardia, tachypnea, & fever), and was found to be flu B positive, with symptoms suggestive community-acquired pneumonia. CT chest showed a spiculated lesion >2 cm highly suggestive of malignancy. Sepsis: secondary to influenza and community acquired pneumonia fever, tachycardia, and increased oxygen requirement/work of breathing with new infiltrate on admission Influenza B positive on swab, continue Tamiflu 30mg PO BID (reduced dose because of CKD) Continue albuterol/ipratropium nebs Hazy opacity on cxr, CT shows small lingular infiltrate and suspiscious spiculated FATIMAH nodule Continue ceftriaxone and azithromycin for CAP day 5 Fevers likely secondary to influenza rather than significant pneumonia Blood culture negative, plan to discontinue antibiotics on discharge Discharge on steroid taper Lung mass: spiculated FATIMAH on CT * PET can be done as an outpatient, as per welding operator. * will have to follow with pulmonology as an outpatient, probably rad-onc referral Parkinson's disease: * Continue carbidopa/levodopa Hyperkalemia: Renal function improved 5.2 yesterday, not treated Follow up potassium and renal function on today's BEP Heart healthy diet DVT ppx-heparin 5000 units subcutaneous q8h Full code Problem List: 1. COPD (chronic obstructive pulmonary disease) Pain Ratin Pain Location: n/a Pain Goal: Pain 4 or less Pain Plan: prn Tomorrow's Labs & Rationales: bep
--- NOTE | 2017-08-25 08:28 | PN- Pulmonary ---
Subjective HPI/Critical Care Issues: Patient's respiratory status is improved Objective Current Medications: Current Medications Sig/Good Start time Last Medication Dose Route Stop Time Status Admin Albuterol Sulfate 3 ML TID 08/24 1000 AC 08/24 INH 1900 Azithromycin 500 MG Q24H 08/24 1500 AC 08/24 Dextrose/Water 250 ML IV 1615 Azithromycin 500 MG Q24H 08/22 1300 DC 08/23 Dextrose/Water 250 ML IV 1343 Carbidopa/Levodopa 1 TAB BID 08/21 2200 AC 08/24 PO 2105 Ceftriaxone Sodium 1,000 MG Q24H 08/24 1500 AC 08/24 IV 1615 Ceftriaxone Sodium 1,000 MG Q24H 08/22 1400 DC 08/23 IV 1343 Guaifenesin/ 10 ML Q4P PRN 08/23 0900 AC 08/23 Dextromethorphan PO 1130 Heparin Sodium 5,000 UNIT Q8 08/21 1445 AC 08/21 (Porcine) SC 2103 Ipratropium [place] 2.5 ML TID 08/24 1000 AC 08/24 INH 1900 Lisinopril 20 MG DAILY 08/22 1000 AC 08/24 PO 1047 Magnesium Oxide 400 MG DAILY 08/22 1000 AC 08/24 PO 1047 Methylprednisolone 40 MG ONCE ONE 08/24 1500 DC 08/24 IV 08/24 1501 1433 Methylprednisolone 40 MG Q8 08/23 1652 DC 08/24 IV 0545 Omeprazole 40 MG DAILY AC 08/22 0700 AC 08/25 PO 0654 Oseltamivir Phosphate 30 MG BID 08/21 2200 AC 08/24 PO 08/25 2159 2105 Prednisone 50 MG DAILY 08/25 1000 AC PO Vital Signs & I&O Last 24 Hrs of Vitals and I&O: Vital Signs Date Time Temp Pulse Resp B/P B/P Pulse O2 O2 Flow FiO2 Mean Ox Delivery Rate 08/25 0548 97.5 84 20 100/62 93 Nasal 2.0L Cannula 08/24 2212 98.2 73 20 112/70 96 08/24 1900 94 Nasal 2.0L Cannula 08/24 1600 Nasal 3.0L Cannula 08/24 1420 98.2 90 21 130/70 92 08/24 1047 98.0 101 24 122/70 Intake & Output 08/25 1600 08/25 0800 08/25 0000 Intake Total 50 550 Output Total Balance 50 550 Intake, IV 0 250 Intake, Oral 50 300 Number 0 Bowel Movements Oxygen saturation 2 L 93-94% exam of his chest shows diminished breath sounds are no wheezes cardiac exam shows regular S1 and S2 without murmurs Impression/Plan Impression/Plan Impression/Plan: 72-year-old with severe oxygen-dependent COPD admitted with exacerbation secondary to influenza b. He was found to have a left upper lobe mass which likely represents malignancy will need further evaluation as an outpatient PET scan Recommendations: Patient is clinically improved will need oxygen at discharge and outpatient follow-up with PET scan. Complete outpatient oral antibiotics and Tamiflu no further pulmonary suggestions
--- NOTE | 2017-08-25 09:08 | Discharge Summary ---
See Addendum Visit Information Visit Dates Admission Date: 08/21/17 Discharge Date: 08/27/17 Hospital Course Course Attending Physician: Gabby Mars MD Primary Care Physician: Remigio Webber MD Hospital Course: 72-year-old man with multiple history including but not limited to COPD, 2 L home oxygen oxygen dependent, presented with dyspnea, cough, fever, chills, and fatigue. On admission patient met 3 out of 4 SIRS criteria (tachycardia, tachypnea, & fever), and was found to be flu B positive, with symptoms suggestive community-acquired pneumonia. CT chest showed a spiculated lesion >2 cm highly suggestive of malignancy. #Sepsis with acute respiratory failure secondary to flu and CAP Influenza B positive on swab, completed Tamiflu 30mg PO BID x 5 days. We continue albuterol/ipratropium nebs throughout hospital stay. For community- acquired pneumonia patient was treated with IV ceftriaxone and azithromycin. The patient was treated with IV steroids and he will be discharged on steroid taper. The patient need oxygen at discharge #Lung mass: spiculated FATIMAH on CT A mass was found on CT scan, pulmonary recommended a PET scan as an outpatient to further address this mass. #For all chronic conditions including Parkinson's disease: We continued all home medications including carbidopa/levodopa. Allergies: Coded Allergies: NSAIDS (Non-Steroidal Anti-Inflamma (ULCER 07/24/16) aspirin (ULCER 07/24/16) hydrocodone (NAUSEA 07/24/16) oxycodone (NAUSEA 07/24/16) Disposition Summary Disposition Principal Diagnosis: Flu Community-acquired pneumonia Additional Diagnosis: Lung mass Discharge Disposition: SNF Discharge Instructions General Discharge Information Code Status: Full Code Patient's Diet: Regular diet Patient's Activity: As tolerated Follow-Up Instructions/Appts: Please follow with primary care doctor within 1-2 weeks Please follow-up with clerk specialist within 1 week for PET scan Medications at Discharge Discharge Medications: Stop taking the following medications: Prednisone (Prednisone) 5 MG TABLET ORAL DAILY Qty = 30 Continue taking these medications: Lisinopril/Hydrochlorothiazide (Lisinopril-Hctz 20-12.5 MG Tab) 20 MG-12.5 MG TABLET 1 Tablet ORAL TWICE DAILY Comments: NOT GIVEN IN HOSPITAL-LISINOPRIL ALONE GIVEN Carbidopa/Levodopa (Carbidopa-Levodopa 25-100 Tab) 25 MG-100 MG TABLET 1 Tablet ORAL TWICE DAILY Qty = 60 Comments: Last Taken: 08/27/17 Time: 830AM Albuterol Sulfate (Proair Hfa) 90 MCG HFA.AER.AD 2 Puff Inhale through mouth EVERY 4-6 HOURS NEEDED as needed for copd Qty = 1 Comments: NEBULIZER SOLUTION GIVEN Fluticasone/Vilanterol (Breo Ellipta 100-25 Mcg INH) 100 MCG-25 MCG/DOSE BLST.W.DEV 1 PUFF ORAL DAILY Qty = 60 Comments: NOT GIVEN Ipratropium/Albuterol Sulfate (Iprat-Albut 0.5-3(2.5) MG/3 Ml) 0.5 MG-3 MG (2.5 MG BASE)/3 ML AMPUL.NEB 1 Inhalation Inhale through mouth THREE TIMES DAILY Qty = 90 Pantoprazole Sodium (Pantoprazole Sodium) 40 MG TABLET.DR 1 Tablet ORAL DAILY Qty = 30 Comments: OMEPRAZOLE GIVEN IN SUBSTITUTION Clotrimazole/Betamethasone Dip (Clotrimazole-Betamethasone Crm) 1 %-0.05 % CREAM..G. 1 Application On the skin As Directed as needed for SKIN Qty = 45 Instructions: apply to affected area(s) Comments: NOT GIVEN Magnesium Oxide (Magnesium) 400 MG CAPSULE 1 Tablet ORAL TWICE DAILY Qty = 10 Comments: Last Taken: 08/27/17 Time: 830AM Start taking the following new medications: Prednisone (Prednisone) 10 MG TABLET 1 Tablet ORAL As Directed Qty = 30 No Refills Instructions: TAKE 5 TABS 50MG X 2 DAYS TAKE 4 TABS 40MG X 2 DAYS TAKE 3 TABS 30MG X 2 DAYS TAKE 2 TABS 20MG X 2 DAYS TAKE 1 TAB 10MG X 2 DAYS THEN STOP. Comments: Last Taken: 08/27/17 Time: 830AM Copies To: Jeana DICKERSON,Raul Jean Baptiste
[2017-08-25 14:08] VITALS: BP 122/74
[2017-08-25] MEDS ORDERED: PREDNISONE10 M2 PO (15:36)
[2017-08-25 22:30] VITALS: BP 118/64
[2017-08-26 06:05] VITALS: BP 122/80
--- NOTE | 2017-08-26 08:04 | PN- Housestaff ---
See Addendum Subjective Follow-up For: copd exacerbation left upper lobe lung mass influenza Subjective: ambulating with PT today with dyspnea but no significant hypoxia on 2L supplemental oxygen did need to stop was unable to continuously ambulate because of work of breathing cough is improved, currently nonproductive afebrile, willing to go to STR now Review of Systems Constitutional: Reports: see HPI. Objective Last 24 Hrs of Vital Signs/I&O Vital Signs Date Time Temp Pulse Resp B/P B/P Pulse O2 O2 Flow FiO2 Mean Ox Delivery Rate 08/26 0944 Nasal 2.0L Cannula 08/26 09 97.6 95 20 122/80 08/26 0844 96 Nasal 2.0L Cannula 08/26 0605 97.6 95 20 122/80 92 Nasal 2.0L Cannula 08/26 0000 Nasal 3.0L Cannula 08/25 2230 98.3 95 19 118/64 96 Nasal Cannula 08/25 1938 95 Nasal 2.0L Cannula 08/25 1600 Nasal 3.0L Cannula 08/25 1408 97.7 104 18 122/74 100 Nasal 2.0L Cannula Intake & Output 08/26 1600 08/26 0800 08/26 0000 Intake Total 200 200 Output Total Balance 200 200 Intake, Oral 200 200 Physical Exam General Appearance: Alert, Oriented X3, Cooperative, No Acute Distress Cardiovascular: Regular Rate, Normal S1, Normal S2, No Murmurs Lungs: Clear to Auscultation, diminished air movement but no audible wheezes or rhonchi Abdomen: Normal Bowel Sounds, Soft, No Tenderness, No Masses Extremities: No Clubbing, No Cyanosis, No Edema, Normal Pulses Current Medications: Current Medications Sig/Good Start time Last Medication Dose Route Stop Time Status Admin Albuterol Sulfate 3 ML TID 08/24 1000 AC 08/26 INH 0834 Azithromycin 500 MG Q24H 08/24 1500 DC 08/25 Dextrose/Water 250 ML IV 08/25 2100 1555 Carbidopa/Levodopa 1 TAB BID 08/21 2200 AC 08/26 PO 0905 Ceftriaxone Sodium 1,000 MG Q24H 08/24 1500 DC 08/25 IV 08/25 2100 1555 Guaifenesin/ 10 ML Q4P PRN 08/23 0900 AC 08/23 Dextromethorphan PO 1130 Heparin Sodium 5,000 UNIT Q8 08/21 1445 AC 08/21 (Porcine) SC 210 Ipratropium [place] 2.5 ML TID 08/24 1000 AC 08/26 INH 0834 Lisinopril 20 MG DAILY 08/22 1000 AC 08/26 PO 09 Magnesium Oxide 400 MG DAILY 08/22 1000 AC 08/26 PO 09 Omeprazole 40 MG DAILY AC 08/22 0700 AC 08/26 PO 0603 Oseltamivir Phosphate 30 MG BID 08/21 2200 DC 08/25 PO 08/25 2159 0941 Prednisone 50 MG DAILY 08/25 1000 AC 08/26 PO 09 Assessment/Plan Assessment: 72-year-old man with multiple history including but not limited to COPD, 2 L home oxygen oxygen dependent, presented with dyspnea, cough, fever, chills, and fatigue. On admission patient met 3 out of 4 SIRS criteria (tachycardia, tachypnea, & fever), and was found to be flu B positive, with symptoms suggestive community-acquired pneumonia. CT chest showed a spiculated lesion >2 cm highly suggestive of malignancy. Sepsis: secondary to influenza and community acquired pneumonia fever, tachycardia, and increased oxygen requirement/work of breathing with new infiltrate on admission Influenza B positive on swab, completed Tamiflu 30mg PO BID x 5 days Continue droplet precautions untils tomorrow Continue albuterol/ipratropium nebs Hazy opacity on cxr, CT shows small lingular infiltrate and suspiscious spiculated FATIMAH nodule Completed antibiotic course with ceftriaxone and azithromycin for community pneumonia Fevers likely secondary to influenza rather than significant pneumonia On PO prednisone, discharge on steroid taper Lung mass: spiculated FATIMAH on CT * PET can be done as an outpatient, as per customer care professional. * Pulmonology outpatient follow up, probable rad-onc referral, poor surgical candidate Parkinson's disease: * Continue carbidopa/levodopa Heart healthy diet DVT ppx-heparin 5000 units subcutaneous q8h Full code Stable for discharge to [facility] Problem List: 1. Influenza 2. Pneumonia 3. Fever 4. COPD (chronic obstructive pulmonary disease) 5. COPD with exacerbation Pain Ratin Pain Location: n/a Pain Goal: Pain 4 or less Pain Plan: prn Tomorrow's Labs & Rationales: none
--- NOTE | 2017-08-26 08:19 | PN- Pulmonary ---
Subjective HPI/Critical Care Issues: Patient is still undecided as to disposition. I've encouraged him to consider rehabilitation. Respiratory status is improved Objective Current Medications: Current Medications Sig/Good Start time Last Medication Dose Route Stop Time Status Admin Al Hydroxide/Mg 30 ML ONCE ONE 08/25 0845 DC 08/25 Hydroxide PO 08/25 0846 0939 Albuterol Sulfate 3 ML TID 08/24 1000 AC 08/25 INH 1937 Azithromycin 500 MG Q24H 08/24 1500 DC 08/25 Dextrose/Water 250 ML IV 08/25 2100 1555 Carbidopa/Levodopa 1 TAB BID 08/21 2200 AC 08/25 PO 2115 Ceftriaxone Sodium 1,000 MG Q24H 08/24 1500 DC 08/25 IV 08/25 2100 1555 Guaifenesin/ 10 ML Q4P PRN 08/23 0900 AC 08/23 Dextromethorphan PO 1130 Heparin Sodium 5,000 UNIT Q8 08/21 1445 AC 08/21 (Porcine) SC 2103 Ipratropium [place] 2.5 ML TID 08/24 1000 AC 08/25 INH 1936 Lisinopril 20 MG DAILY 08/22 1000 AC 08/25 PO 0941 Magnesium Oxide 400 MG DAILY 08/22 1000 AC 08/25 PO 0941 Omeprazole 40 MG DAILY AC 08/22 0700 AC 08/26 PO 0603 Oseltamivir Phosphate 30 MG BID 08/21 2200 DC 08/25 PO 08/25 2159 0941 Prednisone 50 MG DAILY 08/25 1000 AC 08/25 PO 0942 Vital Signs & I&O Last 24 Hrs of Vitals and I&O: Vital Signs Date Time Temp Pulse Resp B/P B/P Pulse O2 O2 Flow FiO2 Mean Ox Delivery Rate 08/26 0605 97.6 95 20 122/80 92 Nasal 2.0L Cannula 08/26 0000 Nasal 3.0L Cannula 08/25 2230 98.3 95 19 118/64 96 Nasal Cannula 08/25 1938 95 Nasal 2.0L Cannula 08/25 1600 Nasal 3.0L Cannula 08/25 1408 97.7 104 18 122/74 100 Nasal 2.0L Cannula 08/25 0941 84 120/80 08/25 0840 95 Nasal 2.0L Cannula Intake & Output 08/26 1600 08/26 0800 08/26 0000 Intake Total 200 200 Output Total Balance 200 200 Intake, Oral 200 200 Oxygen saturation 2 L 92% exam of his chest shows decreased breath sounds are no wheezes heard cardiac exam shows regular S1 and S2 without murmurs Impression/Plan Impression/Plan Impression/Plan: 72-year-old with severe oxygen-dependent COPD admitted with exacerbation secondary to influenza b. He was found to have a left upper lobe mass which likely represents malignancy will need further evaluation as an outpatient PET scan patient's history status is stable for discharge he will decide as to whether he wishes to go home or pursue short-term rehabilitation Recommendations: Patient is clinically improved will need oxygen at discharge and outpatient follow-up with PET scan. Complete outpatient oral antibiotics and Tamiflu no further pulmonary suggestions patient can be followed next week to orchestrate PET scan as outpatient
[2017-08-26 14:32] VITALS: BP 110/76
[2017-08-26 22:15] VITALS: BP 122/70
[2017-08-27 06:00] VITALS: BP 108/60
--- NOTE | 2017-08-27 08:09 | PN- Pulmonary ---
Subjective HPI/Critical Care Issues: Patient's respiratory status likely at baseline. Waiting decision regarding disposition Objective Current Medications: Current Medications Sig/Good Start time Last Medication Dose Route Stop Time Status Admin Albuterol Sulfate 3 ML TID 08/24 1000 AC 08/26 INH 1900 Alprazolam 0.25 MG ONCE ONE 08/26 1245 DC 08/26 PO 08/26 1246 1410 Carbidopa/Levodopa 1 TAB BID 08/21 2200 AC 08/26 PO 2111 Guaifenesin/ 10 ML Q4P PRN 08/23 0900 AC 08/23 Dextromethorphan PO 1130 Heparin Sodium 5,000 UNIT Q8 08/21 1445 AC 08/21 (Porcine) SC 2103 Ipratropium [place] 2.5 ML TID 08/24 1000 AC 08/26 INH 1900 Lisinopril 20 MG DAILY 08/22 1000 AC 08/26 PO 0905 Magnesium Oxide 400 MG DAILY 08/22 1000 AC 08/26 PO 0905 Omeprazole 40 MG DAILY AC 08/22 0700 AC 08/27 PO 0531 Prednisone 50 MG DAILY 08/25 1000 AC 08/26 PO 0906 Vital Signs & I&O Last 24 Hrs of Vitals and I&O: Vital Signs Date Time Temp Pulse Resp B/P B/P Pulse O2 O2 Flow FiO2 Mean Ox Delivery Rate 08/27 0600 98.4 77 20 108/60 97 Nasal Cannula 08/27 0000 96 Nasal 2.5L Cannula 08/26 2215 98.1 90 20 122/70 96 Nasal Cannula 08/26 1900 94 Nasal 2.0L Cannula 08/26 1600 Nasal 3.0L Cannula 08/26 1432 97.8 102 20 110/76 93 08/26 0944 Nasal 2.0L Cannula 08/26 0905 97.6 95 20 122/80 08/26 0844 96 Nasal 2.0L Cannula Intake & Output 08/27 1600 08/27 0800 08/27 0000 Intake Total 200 120 Output Total 400 Balance -200 120 Intake, Oral 200 120 Output, Urine 400 Since saturation 2.5 L 97% exam for chest shows diminished breath sounds are no wheezes cardiac exam shows normal S1 and S2 without murmurs Impression/Plan Impression/Plan Impression/Plan: 72-year-old with severe oxygen-dependent COPD admitted with exacerbation secondary to influenza b. He was found to have a left upper lobe mass which likely represents malignancy will need further evaluation as an outpatient PET scan rapidly taper prednisone await decision on disposition Recommendations: Patient is clinically improved will need oxygen at discharge and outpatient follow-up with PET scan. Taper FiO2 with improved saturations. Rapidly taper prednisone. Await decision on disposition. Outpatient follow-up next week for PET scan
--- NOTE | 2017-08-27 08:41 | PN- Housestaff ---
Subjective Follow-up For: COPD exacebation pneumonia probable lung ca Subjective: patient feeling improved on steroids exertional dyspnea improved, ambulated with PT, needed to stop for rest but without hypoxia productive cough improved Review of Systems Constitutional: Reports: see HPI. Objective Last 24 Hrs of Vital Signs/I&O Vital Signs Date Time Temp Pulse Resp B/P B/P Pulse O2 O2 Flow FiO2 Mean Ox Delivery Rate 08/27 0840 95 Nasal 2.0L Cannula 08/27 0800 Nasal 2.5L Cannula 08/27 0600 98.4 77 20 108/60 97 Nasal Cannula 08/27 0000 96 Nasal 2.5L Cannula 08/26 2215 98.1 90 20 122/70 96 Nasal Cannula 08/26 1900 94 Nasal 2.0L Cannula 08/26 1600 Nasal 3.0L Cannula 08/26 1432 97.8 102 20 110/76 93 Intake & Output 08/27 1600 08/27 0800 08/27 0000 Intake Total 200 120 Output Total 400 Balance -200 120 Intake, Oral 200 120 Output, Urine 400 Physical Exam General Appearance: Alert, Oriented X3, Cooperative, No Acute Distress Cardiovascular: Regular Rate, Normal S1, Normal S2, No Murmurs Lungs: diminished air movement but clear to auscultation Abdomen: Normal Bowel Sounds, Soft, No Tenderness, No Masses Extremities: No Clubbing, No Cyanosis, No Edema, Normal Pulses Current Medications: Current Medications Sig/Good Start time Last Medication Dose Route Stop Time Status Admin Albuterol Sulfate 3 ML TID 08/24 1000 AC 08/27 INH 0835 Carbidopa/Levodopa 1 TAB BID 08/21 2200 AC 08/27 PO 0836 Guaifenesin/ 10 ML Q4P PRN 08/23 0900 AC 08/23 Dextromethorphan PO 1130 Heparin Sodium 5,000 UNIT Q8 08/21 1445 AC 08/21 (Porcine) SC 2103 Ipratropium [place] 2.5 ML TID 08/24 1000 AC 08/27 INH 0835 Lisinopril 20 MG DAILY 08/22 1000 AC 08/26 PO 0905 Magnesium Oxide 400 MG DAILY 08/22 1000 AC 08/27 PO 0836 Omeprazole 40 MG DAILY AC 08/22 0700 AC 08/27 PO 0531 Prednisone 50 MG DAILY 08/25 1000 AC 08/27 PO 0836 Assessment/Plan Assessment: 72-year-old man with multiple history including but not limited to COPD, 2 L home oxygen oxygen dependent, presented with dyspnea, cough, fever, chills, and fatigue. On admission patient met 3 out of 4 SIRS criteria (tachycardia, tachypnea, & fever), and was found to be flu B positive, with symptoms suggestive community-acquired pneumonia. CT chest showed a spiculated lesion >2 cm highly suggestive of malignancy. Sepsis: secondary to influenza and community acquired pneumonia fever, tachycardia, and increased oxygen requirement/work of breathing with new infiltrate on admission Influenza B positive on swab, completed Tamiflu 30mg PO BID x 5 days Continue albuterol/ipratropium nebs Hazy opacity on cxr, CT shows small lingular infiltrate and suspiscious spiculated FATIMAH nodule Completed antibiotic course with ceftriaxone and azithromycin for community pneumonia Fevers likely secondary to influenza rather than significant pneumonia On PO prednisone, discharge on steroid taper Lung mass: spiculated FATIMAH on CT * PET can be done as an outpatient, as per fur clipper. * Pulmonology outpatient follow up, probable rad-onc referral, poor surgical candidate Parkinson's disease: * Continue carbidopa/levodopa Heart healthy diet DVT ppx-heparin 5000 units subcutaneous q8h Full code Stable for discharge with pulmonology follow up Problem List: 1. Pneumonia 2. Influenza 3. COPD (chronic obstructive pulmonary disease) Pain Ratin Pain Location: n/a Pain Goal: Pain 4 or less Pain Plan: prn Tomorrow's Labs & Rationales: none discharge
== END 2017-08-27 13:09 | disposition home health service (06) | DRG 871 ==
LOC: ERH 11:11 → ERHI 14:29 → 2NA 14:29 → ENTRNSPT 16:57 → EDTRNSPT 17:03 → EDTRNSPTSTS 17:03 → 2NA 17:14 → CMPTRNSPT 17:24 → 2NA 08-24 08:52 → ENPENDDIS 08-27 12:39 → ENTRNSPT 08-27 12:56 → EDTRNSPT 08-27 13:00 → EDTRNSPTSTS 08-27 13:00 → 2NA 08-27 13:09 → CMPTRNSPT 08-27 13:12
PROVIDERS: Internal Medicine; Physician Assistant Medical
DX: A41.89 Other specified sepsis (principal); J10.00 Influenza due to other identified influenza virus with unspecified type of pneumonia; J96.20 Acute and chronic respiratory failure, unspecified whether with hypoxia or hypercapnia; J44.0 Chronic obstructive pulmonary disease with (acute) lower respiratory infection; J44.1 Chronic obstructive pulmonary disease with (acute) exacerbation; Z99.81 Dependence on supplemental oxygen; G20 Parkinson's disease; I10 Essential (primary) hypertension; E87.5 Hyperkalemia; M19.90 Unspecified osteoarthritis, unspecified site; F41.9 Anxiety disorder, unspecified; F32.9 Major depressive disorder, single episode, unspecified; Z85.820 Personal history of malignant melanoma of skin; Z92.3 Personal history of irradiation; R91.8 Other nonspecific abnormal finding of lung field
CPT/HCPCS: 2NAP; 36415; 71046; 82436; 87040; 87070; 87804; 87804-59; 93005; 93010; 96361; 96374; 96375; 97116-GO; 97161-GP; 97530-GO; 99291; J0131; J0456; J0696; J1644; J2920; J2930; J7040; J7060